=== PATIENT | female | born 1950 | race Two or more races ===

== ENCOUNTER 2024-05-13 12:00 | Emergency (ER) | payer MEDICARE, MEDICAID, SELFPAY ==
[2024-05-13 12:06] VITALS: BP 140/82; PULSE 89; RESP 19; TEMP 36.9; O2SAT 98; BMI 37.1
--- NOTE | 2024-05-13 12:36 | XR_ITS ---
Examination: CT abdomen and pelvis without contrast. Coronal 3-D reconstructions. Sagittal 2-D reconstructions. Date and time of exam:May 13, 2024 1245 hours INDICATIONS: Onset right-sided flank pain beginning 4 days ago COMPARISON: 03/08/2024 CTDI: vol (mGy): 15.8 DLP: (mGycm): 886 Technique: Axial images of the abdomen have been obtained, 3 mm slice thickness Intravenous contrast material has not been administered. Low dose protocols were performed. One or more of the following dose reduction techniques were used; automated exposure control, adjustment of the mA and/or KV according to patient size, use of iterative reconstruction technique. Findings: No focal liver or splenic lesion Small retrocardiac gastric hernia Absent gallbladder No pancreatic or adrenal mass Bilateral subcentimeter renal calculi, the largest lower pole left kidney 6 mm No hydronephrosis or ureteral calculi Aorta normal size No bowel obstruction The retrocecal appendix axial image 151, does demonstrate very mild periappendiceal inflammatory change, axial image 147, the appearance should be clinically correlated No bowel obstruction No bladder calculi IMPRESSION: Bilateral nonobstructing renal calculi, no hydronephrosis or ureteral calculi The appendix is fluid-filled with minimal periappendiceal inflammatory change, the appearance should be clinically correlated
--- NOTE | 2024-05-13 12:42 | PD.EDRME ---
Rapid Medical Screening Exam RME Arrival date/time: 05/13/24 12:00 74-year-old female presents to the emergency department with complaints of right flank pain. History of kidney stones recent stent removal 1 month ago. I have greeted and performed a focused initial assessment of this patient. Initial appropriate labs ordered at this time. A comprehensive ED assessment and evaluation of the patient and analysis of all test and completion of medical decision making process will be conducted by additional ED provider. Chief Complaint: Back Pain/Injury Time Seen by Provider: 05/13/24 12:23 Vital signs: Vital Signs Temperature 98.5 F 05/13/24 12:06 Pulse Rate 89 05/13/24 12:06 Respiratory Rate 19 05/13/24 12:06 Blood Pressure 140/82 H 05/13/24 12:06 Pulse Oximetry (%) 98 05/13/24 12:06 Oxygen Delivery Method Room Air 05/13/24 12:06
[2024-05-13 13:28] LABS: Basophils # (Auto) 0.1 Thou/mm3 (0.0-0.2); Basophils % (Auto) 1 % (0-2.5); Eosinophils # (Auto) 0.2 Thou/mm3 (0.0-0.5); Eosinophils % (Auto) 4 % (0-10); Hematocrit 34.3 % (36.0-46.0); Hemoglobin 10.6 g/dL (12.0-16.0); Immature Granulocytes % (Auto) 0 % (0-0); Immature Granulocytes Auto 0.02 Thou/mm3 (0.00-0.00); Lymphocytes # (Auto) 2.2 Thou/mm3 (1.0-4.8); Lymphocytes % (Auto) 36 % (10-50); Mean Corpuscular HGB Conc 30.9 g/dl (31.0-37.0); Mean Corpuscular Hemoglobin 24.9 pg (25.0-35.0); Mean Corpuscular Volume 81 fL (80-100); Monocytes # (Auto) 0.4 Thou/mm3 (0.0-0.8); Monocytes % (Auto) 7 % (0-12); Neutrophils # (Auto) 3.1 Thou/mm3 (1.8-7.7); Neutrophils % (Auto) 52 % (37-80); Nucleated Red Blood Cell % 0 /100 WBC (0); Platelet Count 421 Thou/mm3 (140-440); RDW Standard Deviation 49.7 fL (36.4-46.3); Red Blood Count 4.25 Miln/mm3 (4.00-5.20)
[2024-05-13 14:07] LABS: Alanine Aminotransferase 10 U/L (10-49); Albumin/Globulin Ratio 1.3 (1.2-2.2); Alkaline Phosphatase 114 U/L (46-116); Anion Gap 6 (7-16); Aspartate Amino Transferase 14 U/L (0-34); BUN/Creatinine Ratio 27 Ratio (12-20); Bilirubin,Total 0.4 mg/dL (0.3-1.2); Blood Urea Nitrogen 16 mg/dL (9-23); Calcium 10.4 mg/dL (8.3-10.6); Calcium (Corrected) 10.4 mg/dL (8.5-10.1); Carbon Dioxide 27.7 mMol/L (20.0-31.0); Chloride 107 mMol/L (98-107); Creatinine (Component) 0.6 mg/dL (0.6-1.3); Estimated Creatinine Clearance 103.4 mL/min (>60); Glucose 165 mg/dL (74-106); Lipase 34 U/L (12-53); Osmolality,Calculated 286 (275-295); Potassium 3.4 mMol/L (3.4-5.1); Sodium 141 mMol/L (136-145); eGFR > 60 See Note
--- NOTE | 2024-05-13 15:30 | EDNOTE_ITS ---
ED Back Injury Pain RME/HPI General Chief Complaint: Back Pain/Injury Stated Complaint: BACK PAIN Time Seen by Provider: 05/13/24 12:23 Arrival date/time: 05/13/24 12:00 RME / HPI RME / HPI Narrative: 05/13/24 12:00 74-year-old female presents to the emergency department with complaints of right flank pain. History of kidney stones recent stent removal 1 month ago. I have greeted and performed a focused initial assessment of this patient. Initial appropriate labs ordered at this time. A comprehensive ED assessment and evaluation of the patient and analysis of all test and completion of medical decision making process will be conducted by additional ED provider. DR. ARAMIS HART ED EVALUATION 74 year old female with a history of kidney stones, s/p right ureteral stent placement and subsequent ESWL, presents to the ED with complaints of right flank and back pain today. She reports that three weeks ago, she had her right renal stent removed in Dr. Syed's office. Following the procedure, she has been experiencing persistent back pain, for which she has been taking [place] 5 mg tablets. Several days after the stent removal, she was diagnosed with a bladder and kidney infection, for which she was prescribed antibiotics. She completed the full course of antibiotics last week. In the past week, however, she has developed a new, localized pain in the right lower quadrant, which worsened this morning. The pain is described as aching in nature, with a moderate to severe intensity. She has continued taking [place] 5 mg for pain relief but ran out of medication yesterday. Denies fever, chills, nausea, vomiting, diarrhea, or changes in urinary habits. No reported modifying factors. Related Data Home Medications ?Medication ?Instructions ?Recorded ?Confirmed fluticasone propionate 50 1 spray intranasal BID PRN 08/18/18 04/03/24 mcg/actuation nasal Congestion spray,suspension albuterol sulfate 90 mcg/actuation 2 puff inhalation QDAY PRN sob 03/22/19 04/03/24 aerosol inhaler (Ventolin HFA) omeprazole 20 mg capsule,delayed 20 mg PO QDAY 03/22/19 04/03/24 release atomoxetine 40 mg capsule 40 mg PO QAM 11/23/23 04/03/24 atorvastatin 40 mg tablet 40 mg PO QPM 11/23/23 04/03/24 meclizine 25 mg tablet 25 mg PO BID PRN Dizziness 11/23/23 04/03/24 montelukast 10 mg tablet 10 mg PO QDAY 11/23/23 04/03/24 ondansetron HCl 8 mg tablet 8 mg PO BID PRN Nausea And Vomiting 01/18/24 04/03/24 nitroglycerin 0.4 mg sublingual 0.4 mg buccal [id number] PRN Chest 02/08/24 04/03/24 tablet Pain ciprofloxacin HCl 500 mg tablet 500 mg PO BID 04/03/24 04/03/24 (Cipro) ibuprofen 800 mg tablet 800 mg PO Q8H PRN Pain 04/03/24 04/03/24 ondansetron 4 mg disintegrating 8 mg PO BID PRN Nausea 04/03/24 04/03/24 tablet rivaroxaban 20 mg tablet (Xarelto) 20 mg PO QDAY 04/03/24 04/03/24 Previous Rx's ?Medication ?Instructions ?Recorded hydrocodone 5 mg-acetaminophen 325 1 tab PO BID PRN pain #6 tabs 03/26/24 mg tablet ciprofloxacin HCl 500 mg tablet 500 mg PO BID #14 tabs 04/05/24 hydrocodone 5 mg-acetaminophen 325 1 tab PO Q6H PRN pain #30 tabs 04/05/24 mg tablet amoxicillin 875 mg-potassium 1 tab PO Q12H 5 days #10 tabs 05/13/24 clavulanate 125 mg tablet hydrocodone 5 mg-acetaminophen 325 1 tab PO Q8H PRN pain #7 tabs 05/13/24 mg tablet Allergies Allergy/AdvReac Type Severity Reaction Status Date / Time morphine Allergy Severe Itching Verified 03/08/24 12:23 codeine AdvReac Severe UPSET Verified 03/08/24 12:23 STOMACH Review of Systems Review of Systems Narrative Review of Systems: Gen: No fever, no chills, no weight loss EYES: No discharge, no visual changes, no pain HEENT: No ear pain, no congestion, no sore throat PULM: no shortness of breath, no cough, no congestion CV: No chest pain, no dyspnea on exertion, no palpitations, no chest tightness GI: No nausea, no vomiting, no diarrhea, + pain, no constipation : No frequency, no urgency,? no dysuria Musc/skel: No joint pain, +back pain Skin: No rash, no ecchymosis, no lesions Neuro: No weakness, no headache Past Medical History Past Medical History NEUROLOGIC: Positive Neurological Disorders, Cerebrovascular Accident, Seizures and Migraine CARDIAC: Positive Cardiac Disorders, Atrial Fibrillation, Angina, Congestive Heart Failure, Deep Vein Thrombosis, Hypertension and Hypotension RESPIRATORY: Positive Bronchitis, Pneumonia, Tuberculosis and Pulmonary Embolism GASTROINTESTINAL: Positive Gastrointestinal Disorders, Gastroesophageal Reflux Disease and Obesity GENITOURINARY: Positive Genitourinary Disorders, Renal Disease and Kidney Stones REPRODUCTIVE: Positive Previous Pregnancies MUSCULOSKELETAL: Positive Musculoskeletal Disorders, Arthritis and Rheumatoid Arthritis ENT: Positive Ear Infection ENDOCRINE: Positive Endocrine Disorders, Diabetes Mellitus Type 2 and Hypoglycemia HEMATOLOGIC: Positive Blood Disorders and Anemia PSYCHO/SOCIAL: Positive Depression and Anxiety OTHER HISTORY: Positive Hospitalization (UTI, fall, CVA), Anesthesia Reactions (pt states goes crazy ), Chicken Pox, Measles and Mumps Family History FAMILY HISTORY: Positive Family Cardiac Disorders, Family Cancer and Family Surgery Surgical History SURGICAL: Positive Cardiac Surgery, Angiogram, Tonsillectomy, Gastric Bypass Johana juliet, Hysterectomy and Tubal Ligation Social History SMOKING STATUS: Never smoker SUBSTANCE USE: does not use ED Exam Narrative Physical exam: GENERAL APPEARANCE: AxOx4, no obvious distress, nontoxic appearing HEENT: NC, AT. MMM. EOMI, clear conjunctiva, oropharynx clear. NECK: Supple without lymphadenopathy. No stiffness or restricted ROM. HEART: Normal rate and regular rhythm, normal S1/S1, no m/r/g LUNGS: CTAB, moving air well. No crackles or wheezes are heard. ABDOMEN: Right flank tenderness, right lower and left lower quadrant tenderness, mild McBurney point tenderness. Soft, nondistended with good bowel sounds heard. BACK: No midline C/T/L spine pain or deformity, no obvious deformity. EXTREMITIES: Without cyanosis, clubbing or edema. MUSCULOSKELETAL: FROM of all major joints, no chest tenderness NEUROLOGICAL: Grossly nonfocal. Alert and oriented, moving all 4 extremities. CN not formally tested but appear grossly intact. Skin: Warm and dry without any rash. Course Quality Measures none Orders Category Date Time Status NPO STAT Care 05/13/24 12:[address] abdomen pelvis wo con Stat Exams 05/13/24 12:36 Completed CBC Stat Lab 05/13/24 13:10 Completed Comprehensive Metabolic Panel Stat Lab 05/13/24 13:10 Completed Lipase Stat Lab 05/13/24 13:10 Completed Prothrombin Time with INR Stat Lab 05/13/24 13:10 Completed Urinalysis Stat Lab 05/13/24 16:23 Completed HYDROcodone*/APAP 5/325 [[place] 5/325] Med 05/13/24 15:31 Discontinued 1 tab PO X1 ONE Ketorolac Inj [Toradol Inj] Med 05/13/24 16:32 Discontinued 30 mg IM X1 ONE cefTRIAXone [Rocephin] 1,000 mg Med 05/13/24 17:28 Discontinued Lidocaine 1% 20 ml [Xylocaine 1% 20 ML] 2.1 ml IM X1 Reevaluation(s) Reevaluation #1: Patient remains clinically stable throughout the emergency department visit. We reviewed all the results, analysis, and treatment plans. Patient is amenable to discharge. Strict return precautions were outlined. Patient was discharged in stable condition. Time: 17:26 Vital Signs Vital signs: Vital Signs Temperature 98.5 F 05/13/24 12:06 Pulse Rate 89 05/13/24 12:06 Respiratory Rate 19 05/13/24 12:06 Blood Pressure 140/82 H 05/13/24 12:06 Pulse Oximetry (%) 98 05/13/24 12:06 Oxygen Delivery Method Room Air 05/13/24 12:06 Pulse ox is 98% on room air which is adequate. Back Pain / Injury MDM Narrative MDM Narrative:: Ms. Hernandez presents to the emergency department with right sided abdominal pain including right lower quadrant tenderness for the last 1 to 2 weeks. She has had right flank tenderness since removal of his stent with Dr. Syed 2 weeks ago of which she was taking [place] for the pain. For the last week pain is now also involved with the anterior right lower quadrant and the right mid abdomen. Additionally she had run out of her [place] yesterday therefore now comes to the emergency department. On exam she does have reproducible pain in the right lower quadrant, however she admits that the pain actually is more in the right flank when you push on her right lower quadrant. She also has McBurney's point tenderness. She endorses a borderline Rovsing sign where upon palpation of the left lower quadrant her right flank is exacerbated. Overall I do feel that this is consistent with her expected pain after removal of the stent consistent with ureteral colic. However CT scan that was ordered via the RME process shows a early fluid-filled appendix that could be consistent with early appendicitis. Given her right lower quadrant tenderness, surgery was consulted who also examined at bedside and does not feel this is consistent with acute appendicitis. As I also do feel this is the case, therefore, we will focus on following up with Dr. Reaves for ureteral colic. I have refilled her hydrocodone for a few more days until she can see Dr. Syed. I, Kerrie Anne, am scribing for and in the presence of Dr. Camarena. Patient data External records reviewed:: [facility] previous records (I reviewed urologist Dr. Syed operative report on 04/05/2024) Clinical information provided by:: patient Social determinants that could affect healthcare access:: none Patient has the following chronic illnesses:: kidney stones, s/p right ureteral stent placement and subsequent ESWL How is presenting disease/condition affected by chronic disease/condition?: exacerbated by Evaluation data The following diagnostics were reviewed and interpreted by me:: lab results and radiology exam(s) Lab and/or radiology exams considered but not ordered:: None Interpretation Summary: Ordering Physician: Pamela Davenport Date of Service: 05/13/24 Procedure(s): CT abdomen pelvis wo [facility] Accession Number(s): [id number] cc: Sen Valdez MD; Alfred Bailey MD; Pamela Davenport~ Examination: CT abdomen and pelvis without contrast. Coronal 3-D reconstructions. Sagittal 2-D reconstructions. Date and time of exam:May 13, 2024 1245 hours INDICATIONS: Onset right-sided flank pain beginning 4 days ago COMPARISON: 03/08/2024 CTDI: vol (mGy): 15.8 DLP: (mGycm): 886 Technique: Axial images of the abdomen have been obtained, 3 mm slice thickness Intravenous contrast material has not been administered. Low dose protocols were performed. One or more of the following dose reduction techniques were used; automated exposure control, adjustment of the mA and/or KV according to patient size, use of iterative reconstruction technique. Findings: No focal liver or splenic lesion Small retrocardiac gastric hernia Absent gallbladder No pancreatic or adrenal mass Bilateral subcentimeter renal calculi, the largest lower pole left kidney 6 mm No hydronephrosis or ureteral calculi Aorta normal size No bowel obstruction The retrocecal appendix axial image 151, does demonstrate very mild periappendiceal inflammatory change, axial image 147, the appearance should be clinically correlated No bowel obstruction No bladder calculi IMPRESSION: Bilateral nonobstructing renal calculi, no hydronephrosis or ureteral calculi The appendix is fluid-filled with minimal periappendiceal inflammatory change, the appearance should be clinically correlated Dictated By:Alfred Bailey MD Signed By:<Electronically signed by Alfred Bailey MD in OV>05/13/24 1354 Medications / Prescriptions Medications or Prescriptions considered but not ordered:: None Medication administrations:: Medication Administration History Discontinued Medications Hydrocodone Bitart/Acetaminophen (Hydrocodone/Apap 5/325 Tablet) 1 tab PO X1 ONE Stop: 05/13/24 15:32 Last Admin: 05/13/24 15:46 Dose: 1 tab Documented By: Ceftriaxone Sodium 1,000 mg/ (Lidocaine HCl 2.1 ml) 0 mg IM X1 ONE Stop: 05/13/24 17:29 Last Admin: 05/13/24 17:56 Dose: 1,000 mg Documented By: LF Comments: Ketorolac Tromethamine (Ketorolac Inj 60 Mg/2 Ml Vial) 30 mg IM X1 ONE Stop: 05/13/24 16:33 Last Admin: 05/13/24 17:53 Dose: 30 mg Documented By: LF See above Consultations Consultation(s) initiated? (list below): Yes Consultation #1 (Physician, Specialty, Details): I spoke with surgeon Dr. Kumar. Discussed patients PMHx, HPI, ED course, exam findings, labs, and radiology results. States she will come evaluate the patient in the ED. Time: 15:30 Consultation #2 (Physician, Specialty, Details): Dr. Kumar evaluated patient in the ED and does not feel there is a surgical problem at this time. States during her examination majority of pain is most to the right back. Diagnosis Most likely diagnosis given after review of the tests above:: Abdominal pain UTI Admission Indicated Admission indicated?: not indicated Admission Request Was there a request for admission?: No Disposition Plan Disposition Plan: Discharge Discharge Attestation Discharge Attestation: The patient and all family members were given an opportunity to ask questions and understood the discharge instructions. Discharge instructions specifically effects, indications for sooner follow up or return to the emergency department, and the expected course of current diagnosis. Patient condition: Stable Discharge Plan Plan Patient Disposition: HOME (Self Care) Prescriptions/Referrals Prescriptions/Med Rec: New hydrocodone-acetaminophen 5-325 mg tablet 1 tab PO Q8H MDD 3 tabs/day PRN (Reason: pain) Qty: 7 0RF amoxicillin-pot clavulanate 875-125 mg tablet 1 tab PO Q12H 5 Days Qty: 10 0RF No Action fluticasone propionate 50 mcg/actuation spray,suspension 1 spray Intranasal BID PRN (Reason: Congestion) Patient Comments: 1 SPRAY IN EACH NOSTRIL TWICE A DAY NEEDED FOR CONGESTION NASALLY 07 DAYS omeprazole 20 mg Capsule,Delayed Release(Dr/Ec) 20 mg PO QDAY albuterol sulfate [Ventolin HFA] 90 mcg/actuation Hfa Aerosol Inhaler 2 puff inhalation QDAY PRN (Reason: sob) nitroglycerin 0.4 mg Tablet, Sublingual 0.4 mg BUCCAL [id number] PRN (Reason: Chest Pain) hydrocodone-acetaminophen 5-325 mg tablet 1 tab PO BID MDD 10mg PRN (Reason: pain) Qty: 6 0RF ibuprofen 800 mg Tablet 800 mg PO Q8H PRN (Reason: Pain) ciprofloxacin HCl [Cipro] 500 mg Tablet 500 mg PO BID Xarelto 20 mg Tablet 20 mg PO QDAY Rx Instructions: must administer with evening meal ondansetron 4 mg tablet,disintegrating 8 mg PO BID PRN (Reason: Nausea) hydrocodone-acetaminophen 5-325 mg tablet 1 tab PO Q6H MDD 6 PRN (Reason: pain) Qty: 30 0RF ciprofloxacin HCl 500 mg tablet 500 mg PO BID Qty: 14 0RF atorvastatin 40 mg Tablet 40 mg PO QPM meclizine 25 mg Tablet 25 mg PO BID PRN (Reason: Dizziness) montelukast 10 mg Tablet 10 mg PO QDAY atomoxetine 40 mg Capsule 40 mg PO QAM ondansetron HCl 8 mg tablet 8 mg PO BID PRN (Reason: Nausea And Vomiting) Patient Comments: TAKE 1 TABLET BY MOUTH TWICE A DAY NEEDED Referrals: Sen Valdez MD [Primary Care Provider] - In 1 week Problem List Clinical Impression: Abdominal pain, UTI (urinary tract infection) Patient/Caregiver Discharge Instructions Education Materials: ED Abdominal Pain Unkn Cause Fem, ED CYSTITIS Female Adult Additional Instructions: Follow-up with your primary care doctor in 2 to 3 days for recheck. Feel free return to the emergency department sooner symptoms worsen or if you notice any new, concerning issues. You have been given a shot of antibiotics here in the emergency department, you can fill your prescription tomorrow morning and start the prescribed antibiotics when you receive them. Print Language: Bengali Stand Alone Forms: Ros[facility] Award Info., Patient Portal Info Letter
[2024-05-13] MEDS: HYDROcodone/APAP 5/325 TABLET 1 TAB PO (15:46)
[2024-05-13 16:46] LABS: Collection Type, Urine Clean Catch
[2024-05-13 17:14] LABS: Bacteria,Urine 4+; Bilirubin,Urine Negative (Negative); Blood,Urine 1+ (Negative); Clarity,Urine Turbid (Clear/Hazy); Color,Urine Yellow (Lt Yel-Yel); Glucose, Urine Negative (Negative); Ketones,Urine Negative (Negative); Leukocyte Esterase,Urine Positive (Negative); Nitrite,Urine Positive (Negative); Protein,Urine Trace (Neg - Trace); RBC,Urine 26 /hpf (0-3); Specific Gravity,Urine 1.022 (1.001-1.035); Squamous Epithelial Cell,Urine 1 /hpf (0-5); Urobilinogen,Urine Negative mg/dL (0.0-1.0); WBC,Urine 56 /hpf (0-5)
[2024-05-13] MEDS: KETOROLAC INJ 60 MG/2 ML VIAL 30 MG IM (17:53)
[2024-05-13] MEDS: cefTRIAXone 1,000 MG, LIDOCAINE 1% 20 ML 2.1 ML IM (17:56)
== END 2024-05-13 18:24 | disposition home or self-care (01) ==
PROVIDERS: Nurse Practitioner Primary Care; Emergency Provider Emergency Medicine; PCP Family Medicine
DX: N39.0 Urinary tract infection, site not specified (principal); N20.0 Calculus of kidney
CPT/HCPCS: 36415; 74176; 80053; 81001; 83690; 85025; 85610; 87086; 96372; 99284; J0696; J1885; J3490; A9270

== ENCOUNTER 2024-07-11 14:22 | Outpatient (RCR) | payer MEDICARE, MEDICAID, SELFPAY ==
--- NOTE | 2024-07-11 14:56 | PT.OIERPT ---
PT OP Initial Eval Patient Information Outpatient Physical Therapy Treatment Date: 07/11/24 Visit Reasons: Eval for motorized wheelchair Medical Diagnosis: Back Pain Treatment Dx #1: BLE Weakness Treatment Dx #2: Falls Start of Care: 07/11/24 Date of Onset: 6 months ago Smoking Status Smoking Status: Never smoker Initial Assessment Subjective: Pt is a 74 y/o female reports of back pain, BLE weakness, vertigo, a-fib, heart failure, and imbalance. Due to limitation Pt has difficulty with ADLs, community outings, and and recreational activities. Objective: Please see wheel chair evaluation for more details BLE MMTs: grossly 3+/5 TU sec Assessment: Pt demonstrate BLE weakness and back pain leading to difficulty with ADLs. Furthermore, Pt has been falling more frequently at home. Pt will benefit from a power wheelchair to increase independence and community outings. Pt was evaluated and d/c from care; thank you for your referrals. Short Term and Passenger Rate Clerk Goals 1) Eval and D/C 2) Follow up with MD Treatment Plan Frequency and Duration: 1x Certification Dates: 07/11/24 to 10/09/24 Procedure Charges OP PT Eval Mod Complex 30 minutes: Yes
== END 2024-07-12 23:59 | disposition home or self-care (01) ==
LOC: CPTX 14:22
PROVIDERS: PCP Family Medicine; Referring Provider Family Medicine; Visit Provider Family Medicine
DX: M54.9 Dorsalgia, unspecified (principal); R53.1 Weakness; R26.89 Other abnormalities of gait and mobility; R29.6 Repeated falls
CPT/HCPCS: 97162

== ENCOUNTER 2024-08-22 14:58 | Emergency (ER) | payer MEDICARE, MEDICAID, SELFPAY ==
--- NOTE | 2024-08-22 16:13 | EKG_ITS ---
[facility] Test Date: 2024-08-22 Pat Name: BARBIE SWEENEY Department: Room: - Gender: Female Full Stack Java Developer: : 1950 Requested By: Vick Gordon Order Number: [id number] Reading MD: Vick Gordon Measurements Intervals [place] Rate: 84 P: 51 MS: 161 QRS: -4 QRSD: 85 T: 31 QT: 359 QTc: 425 Interpretive Statements SINUS RHYTHM Compared to ECG 03/25/2024 16:19:47 Myocardial infarct finding no longer present /store/S0/[id number]/ecg/[id number].pdf
--- NOTE | 2024-08-22 16:13 | XR_ITS ---
EXAMINATION: CT head/brain wo con, CT cervical spine wo con ORDERING PROVIDER: Vick Martinez NP HISTORY: Right-sided headache, neck pain, dizziness. Fall one week ago. TECHNIQUE: CT scanner was used in the volumetric, helical non-contrast acquisition of the head and cervical spine with 2-D and 3-D reformats created on a separate workstation and submitted for interpretation. Institutional dose reducing protocols were utilized. RADIATION DOSE: DLP 997 mGy-cm COMPARISON: 10/12/2023, CT head. A 03/01/2024, CT cervical spine. FINDINGS: No acute intracranial hemorrhage, mass effect, or midline shift. Mild global parenchymal volume loss. Scattered periventricular and subcortical white matter hypodensities, which can be seen with chronic small vessel ischemic changes. Preserved ventricles and basal cisterns. Orbits unremarkable. Paranasal sinuses clear. Mastoid air cells clear. Diffuse bony demineralization. Hyperostosis frontalis. Moderate perivascular calcifications. No skull fracture identified. No cervical spine fracture or dislocation. Straightening of the normal cervical lordotic curvature which may be on the basis of muscle spasm or patient positioning. Mild multilevel uncovertebral hypertrophy. Moderate bridging syndesmophytes upper thoracic spine partially evaluated. Mild degenerative disc disease produces pronounced at C7-T1 and T1-T2. Small osseous cyst right posterior elements T1, increased in prominence from prior. Partially evaluated large lobulated soft tissue mass in the upper mediastinum with associated coarse calcifications and nodules measuring up to 1.4 cm favored to represent a multinodular thyroid goiter. Moderate calcifications carotid bulbs. Retropharyngeal carotid arteries. IMPRESSION: 1. No acute intracranial hemorrhage, mass effect, or midline shift. 2. No cervical spine fracture or dislocation. 3. Partially evaluated large lobulated soft tissue mass with associated coarse calcifications and nodularity in the upper mediastinum favored to represent a multinodular thyroid goiter. Recommend correlation with history and physical exam. Consider routine outpatient thyroid ultrasound.
--- NOTE | 2024-08-22 16:14 | EDRME_ITS ---
Rapid Medical Screening Exam [facility] Arrival date/time: 08/22/24 14:58 CC: Dizziness HPI ongoing for the past week which includes 2 falls 1 3 days ago and 1 2 days ago. Patient states dizziness involves her spinning not the room spinning no prior history of similar events. Denies chest pain shortness of breath difficulty breathing. Chief Complaint: Dizziness
[2024-08-22 16:24] VITALS: BP 112/67; PULSE 83; RESP 18; TEMP 36.6; O2SAT 97
[2024-08-22] MEDS: MECLIZINE HCL 25 MG TABLET 50 MG PO (16:31)
[2024-08-22 16:45] LABS: Basophils # (Auto) 0.1 Thou/mm3 (0.0-0.2); Basophils % (Auto) 1 % (0-2.5); Eosinophils # (Auto) 0.4 Thou/mm3 (0.0-0.5); Eosinophils % (Auto) 5 % (0-10); Hematocrit 40.4 % (36.0-46.0); Hemoglobin 13.1 g/dL (12.0-16.0); Immature Granulocytes % (Auto) 0 % (0-0); Immature Granulocytes Auto 0.01 Thou/mm3 (0.00-0.00); Lymphocytes # (Auto) 2.2 Thou/mm3 (1.0-4.8); Lymphocytes % (Auto) 31 % (10-50); Mean Corpuscular HGB Conc 32.4 g/dl (31.0-37.0); Mean Corpuscular Hemoglobin 28.6 pg (25.0-35.0); Mean Corpuscular Volume 88 fL (80-100); Monocytes # (Auto) 0.4 Thou/mm3 (0.0-0.8); Monocytes % (Auto) 6 % (0-12); Neutrophils # (Auto) 3.9 Thou/mm3 (1.8-7.7); Neutrophils % (Auto) 56 % (37-80); Nucleated Red Blood Cell % 0 /100 WBC (0); Platelet Count 362 Thou/mm3 (140-440); RDW Standard Deviation 56.9 fL (36.4-46.3); Red Blood Count 4.58 Miln/mm3 (4.00-5.20); White Blood Count 6.9 Thou/mm3 (3.6-11.0)
[2024-08-22 17:00] LABS: Prothrombin Time 10.8 Seconds (9.0-12.2)
[2024-08-22 17:04] LABS: B-Type Natriuretic Peptide < 20 pg/mL (0-100)
[2024-08-22 17:06] LABS: Alanine Aminotransferase 12 U/L (10-49); Albumin, Serum 3.9 gm/dL (3.4-4.8); Albumin/Globulin Ratio 1.5 (1.2-2.2); Alkaline Phosphatase 115 U/L (46-116); Anion Gap 7 (7-16); Aspartate Amino Transferase 14 U/L (0-34); BUN/Creatinine Ratio 18 Ratio (12-20); Bilirubin,Total 0.3 mg/dL (0.3-1.2); Blood Urea Nitrogen 14 mg/dL (9-23); Calcium 9.5 mg/dL (8.3-10.6); Calcium (Corrected) 9.6 mg/dL (8.5-10.1); Carbon Dioxide 26.6 mMol/L (20.0-31.0); Chloride 105 mMol/L (98-107); Creatinine (Component) 0.8 mg/dL (0.6-1.3); Globulin 2.6 gm/dL (2.3-3.5); Glucose 195 mg/dL (74-106); LDH (Lactate Dehydrogenase) 176 U/L (120-246); Osmolality,Calculated 283 (275-295); Potassium 3.8 mMol/L (3.4-5.1); Sodium 139 mMol/L (136-145); Total Protein 6.5 gm/dL (5.7-8.2); Troponin I < 0.020 ng/mL (0.0-0.045); eGFR > 60 See Note
[2024-08-22 17:52] VITALS: BP 149/83; PULSE 83; RESP 18; TEMP 37.3; O2SAT 100
[2024-08-22 18:42] LABS: Collection Type, Urine Clean Catch
[2024-08-22 19:17] LABS: Bacteria,Urine 1+; Bilirubin,Urine Negative (Negative); Blood,Urine Trace (Negative); Clarity,Urine Turbid (Clear/Hazy); Color,Urine Yellow (Lt Yel-Yel); Glucose, Urine Negative (Negative); Hyaline Casts,Urine < 1 /hpf (0-1); Ketones,Urine Negative (Negative); Leukocyte Esterase,Urine Positive (Negative); Nitrite,Urine Positive (Negative); Protein,Urine 1+ (Neg - Trace); RBC,Urine 22 /hpf (0-3); Specific Gravity,Urine 1.021 (1.001-1.035); Squamous Epithelial Cell,Urine < 1 /hpf (0-5); WBC,Urine 169 /hpf (0-5)
[2024-08-22 19:26] LABS: Amphetamine/Methamp Scrn,U Negative (Negative); Barbiturate Screen,Urine Negative (Negative); Benzodiazepines Screen,Urine Negative (Negative); Benzoylecgonine Screen, Ur Negative (Negative); Fentanyl Screen,Urine Negative (Negative); Opiate Screen,Urine Negative (Negative); THC Screen,Urine Negative (Negative)
[2024-08-22 20:10] VITALS: BP 142/78; PULSE 85; RESP 18; TEMP 37.2; O2SAT 97
--- NOTE | 2024-08-22 20:45 | PD.EDDIZZY ---
ED Dizzyness RME/HPI General Chief Complaint: Dizziness Stated Complaint: DIZZY, HEADACHE X1 WEEK Time Seen by Provider: 08/22/24 20:31 Arrival date/time: 08/22/24 14:58 RME / HPI RME / HPI Narrative: 74-year-old female patient with significant history of A-fib came in for evaluation regarding dizziness ,ongoing for the past week which includes 2 falls 1 3 days ago and 1 2 days ago. Patient states dizziness involves her spinning not the room spinning no prior history of similar events. Denies chest pain shortness of breath difficulty breathing. Denies any other complaints no medication was taken prior to arrival. Related Data Home Medications ?Medication ?Instructions ?Recorded ?Confirmed fluticasone propionate 50 1 spray intranasal BID PRN 08/18/18 04/03/24 mcg/actuation nasal Congestion spray,suspension albuterol sulfate 90 mcg/actuation 2 puff inhalation QDAY PRN sob 03/22/19 04/03/24 aerosol inhaler (Ventolin HFA) omeprazole 20 mg capsule,delayed 20 mg PO QDAY 03/22/19 04/03/24 release atomoxetine 40 mg capsule 40 mg PO QAM 11/23/23 04/03/24 atorvastatin 40 mg tablet 40 mg PO QPM 11/23/23 04/03/24 meclizine 25 mg tablet 25 mg PO BID PRN Dizziness 11/23/23 04/03/24 montelukast 10 mg tablet 10 mg PO QDAY 11/23/23 04/03/24 ondansetron HCl 8 mg tablet 8 mg PO BID PRN Nausea And Vomiting 01/18/24 04/03/24 nitroglycerin 0.4 mg sublingual 0.4 mg buccal [id number] PRN Chest 02/08/24 04/03/24 tablet Pain ciprofloxacin HCl 500 mg tablet 500 mg PO BID 04/03/24 04/03/24 (Cipro) ibuprofen 800 mg tablet 800 mg PO Q8H PRN Pain 04/03/24 04/03/24 ondansetron 4 mg disintegrating 8 mg PO BID PRN Nausea 04/03/24 04/03/24 tablet rivaroxaban 20 mg tablet (Xarelto) 20 mg PO QDAY 04/03/24 04/03/24 Previous Rx's ?Medication ?Instructions ?Recorded hydrocodone 5 mg-acetaminophen 325 1 tab PO BID PRN pain #6 tabs 03/26/24 mg tablet ciprofloxacin HCl 500 mg tablet 500 mg PO BID #14 tabs 04/05/24 hydrocodone 5 mg-acetaminophen 325 1 tab PO Q6H PRN pain #30 tabs 04/05/24 mg tablet hydrocodone 5 mg-acetaminophen 325 1 tab PO Q8H PRN pain #7 tabs 05/13/24 mg tablet cefuroxime axetil 500 mg tablet 500 mg PO BID #14 tabs 08/22/24 meclizine 50 mg tablet 50 mg PO BID PRN dizziness #20 tabs 08/22/24 ondansetron HCl 4 mg tablet 4 mg PO Q8H PRN nausea and 08/22/24 vomiting 5 days #20 tabs Allergies Allergy/AdvReac Type Severity Reaction Status Date / Time morphine Allergy Severe Itching Verified 08/22/24 15:01 codeine AdvReac Severe UPSET Verified 08/22/24 15:01 STOMACH Review of Systems Review of Systems Narrative Review of Systems: Review of system reviewed and within normal limits except mentioned in HPI ED Exam Narrative Physical exam: VITAL SIGNS: Reviewed. GENERAL APPEARANCE: Alert and interactive, follows commands, no acute distress, HEAD AND FACE: Non-traumatic. ENT: PERRL, pink conjunctivitis, eyelid no trauma, Mucous membrane moist. NECK: Supple, nontender, no nuchal rigidity. CHEST: No tenderness, no crepitus, no paradoxical movement, no retractions. LUNGS: Clear, well ventilated, symmetric, no rales, no wheezing, no ronchi, no stridor, good breath sounds bilaterally. HEART: Regular rate, regular rhythm, no murmur, no gallops. ABDOMEN: Soft, positive bowel sounds, nondistended, no guarding, nontender, no rebound, no masses, RECTAL: Deferred. GENITAL: Deferred. NEUROLOGICAL: Gross motor function intact sensory function intact, Appropriate for age. MUSCULOSKELETAL: low back nontender, full range of motion. EXTREMITIES: Nontender, full range of motion. SKIN: Color pink, dry, no rash, no lacerations, no abrasions, no contusions. LYMPHATICS: Deferred. Course Quality Measures none Orders Category Date Time Status EKG (ED ONLY) *Do not use* NOW Care 08/22/24 16:[address] cervical spine wo con Stat Exams 08/22/24 16:[address] head/brain wo con Stat Exams 08/22/24 16:13 Completed EKG (ED Only) Stat Exams 08/22/24 16:13 Draft B-Type Natriuretic Peptide Stat Lab 08/22/24 16:34 Completed CBC Stat Lab 08/22/24 16:34 Completed Comprehensive Metabolic Panel Stat Lab 08/22/24 16:34 Completed Drug Screen,Urine Stat Lab 08/22/24 17:27 Completed LDH (Lactate Dehydrogenase) Stat Lab 08/22/24 16:34 Completed Magnesium Stat Lab 08/22/24 16:34 Completed Partial Thromboplastin Time Stat Lab 08/22/24 16:34 Completed Prothrombin Time with INR Stat Lab 08/22/24 16:34 Completed Troponin I Stat Lab 08/22/24 16:34 Completed Urinalysis Stat Lab 08/22/24 17:26 Completed 1,000 mg IM w/Lido* 1% Med 08/22/24 20:45 Ordered cefTRIAXone [Rocephin] 1,000 mg Lidocaine 1% 20 ml [Xylocaine 1% 20 ML] 2.1 ml IM X1 Meclizine HCl [Antivert] Med 08/22/24 16:13 Discontinued 50 mg PO X1 ONE Vital Signs Vital signs: Vital Signs Temperature 97.9 F 08/22/24 16:24 Pulse Rate 83 08/22/24 16:24 Respiratory Rate 18 08/22/24 16:24 Blood Pressure 112/67 08/22/24 16:24 Pulse Oximetry (%) 97 08/22/24 16:24 Oxygen Delivery Method Room Air 08/22/24 16:24 Dizziness MDM Narrative MDM Narrative:: 74-year-old female patient with significant history of A-fib came in for evaluation regarding dizziness ,ongoing for the past week which includes 2 falls 1 3 days ago and 1 2 days ago. Patient states dizziness involves her spinning not the room spinning no prior history of similar events. Denies chest pain shortness of breath difficulty breathing. Denies any other complaints no medication was taken prior to arrival. Laboratory workup all came back unremarkable except for positive UTI, CT scan of the head came back unremarkable CT scan of the cervical spine came back 1. No acute intracranial hemorrhage, mass effect, or midline shift. 2. No cervical spine fracture or dislocation. 3. Partially evaluated large lobulated soft tissue mass with associated coarse calcifications and nodularity in the upper mediastinum favored to represent a multinodular thyroid goiter. Recommend correlation with history and physical exam. Consider routine outpatient thyroid ultrasound. Patient needs outpatient thyroid ultrasound. Patient's was advised to follow-up closely with PCP and follow-up regarding incidental finding of the thyroid gland enlargement. Patient agrees with the plan. Patient was given ceftriaxone IM. Patient data External records reviewed:: None Clinical information provided by:: patient Social determinants that could affect healthcare access:: none Patient has the following chronic illnesses:: Chronic A-fib How is presenting disease/condition affected by chronic disease/condition?: uneffected by Evaluation data The following diagnostics were reviewed and interpreted by me:: lab results, radiology exam(s) and EKG tracing(s) Lab and/or radiology exams considered but not ordered:: None Interpretation Summary: EKG showed sinus rhythm, ventricular rate of 84 bpm, no ST segment elevation depression noted. The rest of the labs and imaging see MDM Medications / Prescriptions Medications or Prescriptions considered but not ordered:: None Medication administrations:: Medication Administration History Discontinued Medications Meclizine HCl (Meclizine Hcl 25 Mg Tablet) 50 mg PO X1 ONE Stop: 08/22/24 16:14 Last Admin: 08/22/24 16:31 Dose: 50 mg Documented By: CHRIS Meclizine and ceftriaxone IM Consultations Consultation(s) initiated? (list below): No Diagnosis Dizziness Differential Diagnosis: benign paroxysmal positional vertigo and other (UTI, dizziness, dehydration) Most likely diagnosis given after review of the tests above:: Dizziness, UTI Admission Indicated Admission indicated?: not indicated Explain why admission is indicated or not indicated:: Stable Admission Request Was there a request for admission?: No Disposition Plan Disposition Plan: Discharge Discharge Attestation Discharge Attestation: The patient was given an opportunity to ask questions and understood the discharge instructions. Discharge instructions specifically effects, indications for sooner follow up or return to the emergency department, and the expected course of current diagnosis. Patient condition: Stable Discharge Plan Plan Patient Disposition: HOME (Self Care) Disposition Comment: stable Prescriptions/Referrals Prescriptions/Med Rec: New cefuroxime axetil 500 mg tablet 500 mg PO BID Qty: 14 0RF meclizine 50 mg tablet 50 mg PO BID PRN (Reason: dizziness) Qty: 20 0RF ondansetron HCl 4 mg tablet 4 mg PO Q8H PRN (Reason: nausea and vomiting) 5 Days Qty: 20 0RF No Action fluticasone propionate 50 mcg/actuation spray,suspension 1 spray Intranasal BID PRN (Reason: Congestion) Patient Comments: 1 SPRAY IN EACH NOSTRIL TWICE A DAY NEEDED FOR CONGESTION NASALLY 07 DAYS omeprazole 20 mg Capsule,Delayed Release(Dr/Ec) 20 mg PO QDAY albuterol sulfate [Ventolin HFA] 90 mcg/actuation Hfa Aerosol Inhaler 2 puff inhalation QDAY PRN (Reason: sob) nitroglycerin 0.4 mg Tablet, Sublingual 0.4 mg BUCCAL [id number] PRN (Reason: Chest Pain) hydrocodone-acetaminophen 5-325 mg tablet 1 tab PO BID MDD 10mg PRN (Reason: pain) Qty: 6 0RF ibuprofen 800 mg Tablet 800 mg PO Q8H PRN (Reason: Pain) ciprofloxacin HCl [Cipro] 500 mg Tablet 500 mg PO BID Xarelto 20 mg Tablet 20 mg PO QDAY Rx Instructions: must administer with evening meal ondansetron 4 mg tablet,disintegrating 8 mg PO BID PRN (Reason: Nausea) hydrocodone-acetaminophen 5-325 mg tablet 1 tab PO Q6H MDD 6 PRN (Reason: pain) Qty: 30 0RF ciprofloxacin HCl 500 mg tablet 500 mg PO BID Qty: 14 0RF atorvastatin 40 mg Tablet 40 mg PO QPM meclizine 25 mg Tablet 25 mg PO BID PRN (Reason: Dizziness) montelukast 10 mg Tablet 10 mg PO QDAY atomoxetine 40 mg Capsule 40 mg PO QAM ondansetron HCl 8 mg tablet 8 mg PO BID PRN (Reason: Nausea And Vomiting) Patient Comments: TAKE 1 TABLET BY MOUTH TWICE A DAY NEEDED hydrocodone-acetaminophen 5-325 mg tablet 1 tab PO Q8H MDD 3 tabs/day PRN (Reason: pain) Qty: 7 0RF Referrals: No Primary/Family,Physician [Primary Care Provider] - In 1 week Problem List Clinical Impression: UTI (urinary tract infection), Dizziness Patient/Caregiver Discharge Instructions Discharge Activity: activity as tolerated Education Materials: Understanding Urinary Tract ... Additional Instructions: Thank you for the opportunity for serving you today. You are stable for discharged . You are advised to: Follow-up with your PCP in 1 to 2 days Return to ED for worsening of symptoms Increase oral fluids Take medication as prescribed Print Language: Japanese Stand Alone Forms: Rosario Award Info., Patient Portal Info Letter PA/LEGAL ASSISTANT Supervising Physician PA/LEGAL ASSISTANT Supervising Physician: MD Yhaaira
[2024-08-22] MEDS: cefTRIAXone 1,000 MG, LIDOCAINE 1% 20 ML 2.1 ML IM (21:10)
== END 2024-08-22 21:00 | disposition home or self-care (01) ==
PROVIDERS: Registered Nurse General Practice; Emergency Provider Emergency Medicine
DX: N39.0 Urinary tract infection, site not specified (principal); R42 Dizziness and giddiness; I48.91 Unspecified atrial fibrillation; R51.9 Headache, unspecified; M54.2 Cervicalgia
CPT/HCPCS: 36415; 70450; 72125; 80053; 80307; 81001; 83615; 83735; 83880; 84484; 85025; 85610; 85730; 93005; 96372; 99284; J0696; J3490; A9270

== ENCOUNTER 2024-11-12 18:11 | Inpatient (IN) | payer MEDICARE, MEDICAID, SELFPAY ==
[2024-11-12] VITALS (30 sets, daily range): BP systolic 119–168; BP diastolic 66–108; PULSE 68–92; RESP 14–100; TEMP 36.7–37.1; O2SAT 92–100; BMI 33.9
--- NOTE | 2024-11-12 18:20 | EKG_ITS ---
[facility] (Formerly [facility]) Test Date: 2024-11-12 Pat Name: BARBIE SWEENEY Department: Room: - Gender: Female [employer]: : 1950 Requested By: Sea Meier Order Number: [id number] Reading MD: Sea Meier Measurements Intervals [place] Rate: 75 P: 44 DC: 152 QRS: 6 QRSD: 93 T: 24 QT: 407 QTc: 457 Interpretive Statements SINUS RHYTHM LOW QRS VOLTAGE IN PRECORDIAL LEADS [QRS DEFLECTION < 1.0 mV IN CHEST LEADS] Compared to ECG 08/22/2024 16:21:39 Low QRS voltage now present /[id number]/[email or web address]/[id number].pdf
--- NOTE | 2024-11-12 18:36 | XR_ITS ---
Examination: AP chest single view TECHNIQUE: AP portable upright chest single view Date and time: November 12, 2024, 1940 hours Comparison March 25, 2024 INDICATIONS: Such as pain today. FINDINGS: Minimal prominence left ventricle Mild elevation right hemidiaphragm. Mild vascular congestion. Suspicious for early pneumonia left base, obscuring detail left hemidiaphragm Prominent osteopenia. IMPRESSION: Suspicious for early pneumonia left base
[2024-11-12] MEDS: MECLIZINE HCL 25 MG TABLET PO (18:47)
[2024-11-12 19:00] LABS: Basophils # (Auto) 0.1 Thou/mm3 (0.0-0.2); Basophils % (Auto) 1 % (0-2.5); Eosinophils # (Auto) 0.5 Thou/mm3 (0.0-0.5); Eosinophils % (Auto) 8 % (0-10); Hematocrit 37.5 % (36.0-46.0); Hemoglobin 12.8 g/dL (12.0-16.0); Immature Granulocytes % (Auto) 0 % (0-0); Immature Granulocytes Auto 0.02 Thou/mm3 (0.00-0.00); Lymphocytes # (Auto) 2.2 Thou/mm3 (1.0-4.8); Lymphocytes % (Auto) 35 % (10-50); Mean Corpuscular HGB Conc 34.1 g/dl (31.0-37.0); Mean Corpuscular Hemoglobin 30.4 pg (25.0-35.0); Mean Corpuscular Volume 89 fL (80-100); Monocytes # (Auto) 0.5 Thou/mm3 (0.0-0.8); Monocytes % (Auto) 8 % (0-12); Neutrophils % (Auto) 48 % (37-80); Nucleated Red Blood Cell % 0 /100 WBC (0); Platelet Count 396 Thou/mm3 (140-440); Red Blood Count 4.21 Miln/mm3 (4.00-5.20); White Blood Count 6.3 Thou/mm3 (3.6-11.0)
--- NOTE | 2024-11-12 19:05 | PD.EDDIZZY ---
ED Dizzyness RME/HPI General Chief Complaint: Dizziness Stated Complaint: DIZZY Time Seen by Provider: 11/12/24 18:34 Arrival date/time: 11/12/24 18:11 RME / HPI RME / HPI Narrative: Dr. Crowley?s Main ED Evaluation:?74 y/o female with Hx of CVA, HTN, COPD, Seizures, history of Diabetes Mellitus Type 2 but not taking meds, Hypoglycemia, Anemia, chronic vertigo, and chronic UTI's presents to ED c/o an episode of severe chest pain with shortness of breath and nausea x yesterday. Patient took nitroglcerin and symptoms improved. Today she states that she has had some similar chest pain with shortness of breath and nausea as well as an exacerbation of her chronic vertigo. Denies any vomiting. Patient has just completed ABX regimen for UTI and states these are chronic in nature. Patient states she has some mild dysuria but no flank pain, fevers, shakes, chills, sweats. Patient states that she takes meclizine daily for chronic vertigo. She is stating she is also feeling an exacerbation of her sensation of spinning balance issues. No other concerns or complaints expressed at this time. Related Data Home Medications ?Medication ?Instructions ?Recorded ?Confirmed fluticasone propionate 50 1 spray intranasal BID PRN 08/18/18 11/13/24 mcg/actuation nasal Congestion spray,suspension albuterol sulfate 90 mcg/actuation 2 puff inhalation QDAY PRN sob 03/22/19 11/13/24 aerosol inhaler (Ventolin HFA) omeprazole 20 mg capsule,delayed 20 mg PO QDAY 03/22/19 11/13/24 release atomoxetine 40 mg capsule 40 mg PO QAM 11/23/23 11/13/24 atorvastatin 40 mg tablet 40 mg PO QPM 11/23/23 11/13/24 meclizine 25 mg tablet 25 mg PO BID PRN Dizziness 11/23/23 11/13/24 montelukast 10 mg tablet 10 mg PO QDAY 11/23/23 11/13/24 ondansetron HCl 8 mg tablet 8 mg PO BID PRN Nausea And Vomiting 01/18/24 04/03/24 nitroglycerin 0.4 mg sublingual 0.4 mg buccal [id number] PRN Chest 02/08/24 11/13/24 tablet Pain ibuprofen 800 mg tablet 800 mg PO Q8H PRN Pain 04/03/24 11/13/24 ondansetron 4 mg disintegrating 8 mg PO BID PRN Nausea 04/03/24 11/13/24 tablet rivaroxaban 20 mg tablet (Xarelto) 20 mg PO QDAY 04/03/24 11/13/24 Previous Rx's ?Medication ?Instructions ?Recorded hydrocodone 5 mg-acetaminophen 325 1 tab PO BID PRN pain #6 tabs 03/26/24 mg tablet hydrocodone 5 mg-acetaminophen 325 1 tab PO Q6H PRN pain #30 tabs 04/05/24 mg tablet hydrocodone 5 mg-acetaminophen 325 1 tab PO Q8H PRN pain #7 tabs 05/13/24 mg tablet meclizine 50 mg tablet 50 mg PO BID PRN dizziness #20 tabs 08/22/24 Allergies Allergy/AdvReac Type Severity Reaction Status Date / Time morphine Allergy Severe Itching Verified 08/22/24 15:01 codeine AdvReac Severe UPSET Verified 08/22/24 15:01 STOMACH Review of Systems Review of Systems Systems Reviewed: All systems reviewed, normal except as documented Past Medical History Past Medical History NEUROLOGIC: Positive Neurological Disorders, Cerebrovascular Accident, Seizures and Migraine CARDIAC: Positive Cardiac Disorders, Atrial Fibrillation, Angina, Congestive Heart Failure, Deep Vein Thrombosis, Hypertension and Hypotension RESPIRATORY: Positive Chronic Obstructive Pulmonary Disease (COPD), Bronchitis, Pneumonia, Tuberculosis and Pulmonary Embolism GASTROINTESTINAL: Positive Gastrointestinal Disorders, Gastroesophageal Reflux Disease and Obesity GENITOURINARY: Positive Genitourinary Disorders, Renal Disease and Kidney Stones REPRODUCTIVE: Positive Previous Pregnancies MUSCULOSKELETAL: Positive Musculoskeletal Disorders, Arthritis and Rheumatoid Arthritis ENT: Positive Ear Infection ENDOCRINE: Positive Endocrine Disorders, Diabetes Mellitus Type 2 and Hypoglycemia HEMATOLOGIC: Positive Blood Disorders and Anemia PSYCHO/SOCIAL: Positive Depression and Anxiety OTHER HISTORY: Positive Hospitalization, Anesthesia Reactions, Chicken Pox, Measles and Mumps Family History FAMILY HISTORY: Positive Family Cardiac Disorders, Family Cancer and Family Surgery Surgical History SURGICAL: Positive Cardiac Surgery, Angiogram, Tonsillectomy, Gastric Bypass Surgery, Hysterectomy and Tubal Ligation Social History SMOKING STATUS: Current some day smoker ED Exam Narrative Physical exam: GENERAL APPEARANCE: alert and oriented x 4, well-developed, well-nourished, no acute distress VITALS: All vitals were reviewed and the pulse ox is 100% on room air, which is normal according to my interpretation. HEENT: Normocephalic, atraumatic; pupils equal, round, reactive to light; EOMI; mild leftward horizontal nystagmus which is worse on position change; mucous membranes pink, moist; oropharynx clear NECK: Supple LUNGS: CTABL; no wheezes, no rales, no rhonchi HEART: Regular rate, regular rhythm; normal S1, S2; no murmurs ABDOMEN: non distended; normal BS; soft, no tenderness, no guarding, no rebound; no masses, no organomegaly, no hernia BACK: no CVA tenderness EXTREMITIES: atraumatic; no edema NEUROLOGIC: awake; alert and oriented x4; cranial nerves II-XII grossly intact; no focal sensory or motor deficits. No dysmetria, intention tremor, staccato speech, dysdiadochokinesia. PSYCHIATRIC: appropriate mood and affect SKIN: warm, dry, normal color; no rashes Course Course Course Narrative: 20:06 chest x-ray: CXR shows normal cardiac silhouette, normal sharp diaphragmatic edge, no infiltrates, normal costophrenic angles, according to my interpretation. EKG timed 05:40 (either wrong time or patient got this EKG elsewhere) normal sinus rhythm at 82 with normal axis, no ectopy, Q waves in V1 and V2, no acute ischemia EKG timed at 18:27 normal sinus rhythm at 75 with a normal axis, no ectopy no acute ischemia 20:12 patient took her Plavix and aspirin today already. Her troponins are elevated. Usually they are normal. There is no acute ischemia on her EKG. She will need admission. Her heart score is a 5 for hypercholesterolemia, age, suspicious story, elevated troponins, indicating she is at a moderate risk for a cardiac event. 20:23 I spoke with the resident for Dr. Lancaster. I will order the heparin bolus and leave it to them to order the drip. Will order Inch of nitropaste of the chest. Accepts the patient for admission. Quality Measures none Orders Category Date Time Status COVID-19 Screening Questionnaire NOW Care 11/12/24 20:50 Active Director Of Manufacturing Operations STAT Care 11/12/24 18:36 Active Continuous Pulse Oximetry NOW Care 11/12/24 18:36 Completed Decision to Admit X1 Care 11/12/24 20:50 Completed EKG (ED ONLY) *Do not use* NOW Care 11/12/24 18:21 Completed Insert IV STAT Care 11/12/24 18:36 Completed Notify provider NOW Care 11/12/24 20:52 Active EKG (ED Only) Stat Exams 11/12/24 18:20 Draft XR chest 1V portable Stat Exams 11/12/24 18:36 Completed B-Type Natriuretic Peptide Stat Lab 11/12/24 18:42 Completed Blood Culture (Lab) Stat Lab 11/12/24 20:42 Results CBC Stat Lab 11/12/24 18:42 Completed Comprehensive Metabolic Panel Stat Lab 11/12/24 18:42 Completed Lipase Stat Lab 11/12/24 18:42 Completed Magnesium Stat Lab 11/12/24 18:42 Completed Partial Thromboplastin Time Stat Lab 11/12/24 18:42 Completed Prothrombin Time with INR Stat Lab 11/12/24 18:42 Completed Troponin I Stat Lab 11/12/24 18:42 Completed Urinalysis Stat Lab 11/12/24 19:00 Completed Aspirin Med 11/12/24 20:41 Discontinued 325 mg PO X1 ONE Aspirin [Ecotrin] Med 11/13/24 09:00 Active 81 mg PO QDAY Clopidogrel [Plavix] Med 11/12/24 20:41 Discontinued 300 mg PO X1 ONE Heparin Inj Med 11/12/24 20:21 Discontinued 4,000 unit IV X1 ONE Heparin/D5w 25K 250 ML Ivpb [Heparin in D5w Ivpb] Med 11/12/24 21:00 Discontinued 25,000 unit in 250 ml IV 10.5 units/kg/hr Meclizine HCl [Antivert] Med 11/12/24 18:40 Discontinued 25 mg PO X1 ONE Nitroglycerin Oint 2% [Nitro-paste Oint 2%] Med 11/12/24 20:23 Discontinued 1 inch TOP X1 ONE cefTRIAXone/D5w 1gm IV premix [Rocephin/D5w 1gm IV Med 11/12/24 20:07 Discontinued premix] 1 gm in 50 ml IV X1 Oxygen Delivery NOW RT 11/12/24 18:36 Active Vital Signs Vital signs: Vital Signs Temperature 98.7 F 11/12/24 18:16 Pulse Rate 68 11/12/24 18:16 Respiratory Rate 20 11/12/24 18:16 Blood Pressure 151/108 H 11/12/24 18:16 Pulse Oximetry (%) 94 L 11/12/24 18:16 Oxygen Delivery Method Room Air 11/12/24 18:16 Dizziness MDM Narrative MDM Narrative:: Scribe Attestation: I, Coco Shey, am scribing for and in the presence of Dr. Crowley. Provider Notation: Although this document has been carefully reviewed, there may still be some phonetic and other typographical errors.? These errors are purely grammatical due to imperfections in the software program and should not be construed in any way to? compromise the substance of the patient's medical care during this visit. Patient data External records reviewed:: [facility] previous records (Reviewed prior ED records from 08/22/24. Patient was seen for Dizziness.) Clinical information provided by:: patient Social determinants that could affect healthcare access:: none Patient has the following chronic illnesses:: Cerebrovascular Accident, Seizures, Migraine CARDIAC: Positive Cardiac Disorders, Atrial Fibrillation, Angina, Congestive Heart Failure, Deep Vein Thrombosis, Hypertension, Hypotension, Chronic Obstructive Pulmonary Disease (COPD), Tuberculosis, Pulmonary Embolism, Gastroesophageal Reflux Disease, Obesity, Renal Disease, Kidney Stones, Arthritis, Rheumatoid Arthritis, Diabetes Mellitus Type 2, Hypoglycemia, Anemia, Depression and Anxiety How is presenting disease/condition affected by chronic disease/condition?: exacerbated by Evaluation data The following diagnostics were reviewed and interpreted by me:: lab results, radiology exam(s) and EKG tracing(s) (EKG at 1827 shows normal sinus rhythm at 75, normal axis, no ectopy, NON-STEMI, per my interpretation.) Lab and/or radiology exams considered but not ordered:: None Interpretation Summary: RADIOLOGY Chest X-Ray: Patient: BARBIE SWEENEY [facility]. Record#: [id number] Birthdate: 1950 Age/Sex: 74 / F Location: [facility] Attending Dr: Ordering Physician: Sea Crowley MD Date of Service: 11/12/24 Procedure(s): XR chest 1V portable Accession Number(s): [id number] cc: Sen Valdez MD; Alfred aBiley MD; Sea Crowley MD~ Examination: AP chest single view TECHNIQUE: AP portable upright chest single view Date and time: November 12, 2024, 1940 hours Comparison March 25, 2024 INDICATIONS: Such as pain today. FINDINGS: Minimal prominence left ventricle Mild elevation right hemidiaphragm. Mild vascular congestion. Suspicious for early pneumonia left base, obscuring detail left hemidiaphragm Prominent osteopenia. IMPRESSION: Suspicious for early pneumonia left base Dictated By: Alfred Bailey MD Signed By: <Electronically signed by Alfred Bailey MD in OV> 11/12/242042 Carotid Doppler Study: Patient: BARBIE SWEENEY [facility]. Record#: [id number] Birthdate: 1950 Age/Sex: 74 / F Location: [address]: Jackson (HOSPITALIST) Anisha STRATTON Ordering Physician: Enio Wills MD Date of Service: 11/12/24 Procedure(s): US carotid duplex Accession Number(s): [id number] cc: Sen Valdez MD; Alfred Bailey MD; Enio Wills MD~ Examination: Carotid arterial duplex scan, ultrasound. Date and time of exam: November 12, 2024 2140 hours INDICATIONS: Chest pain and dizziness episodes beginning 2 days ago Technique: Multiple sonographic images have been obtained of the carotid arteries and vertebral arteries, B-mode/grayscale imaging and Doppler spectral analysis and color flow Peak systolic and diastolic velocities have been recorded. Systolic diastolic ratios have been calculated. Findings: Right peak systolic velocities: Distal internal carotid artery peak systolic velocity is 0.7 M/sec Proximal internal carotid artery peak systolic velocity is 0.9 M/sec Carotid bifurcation peak systolic velocity is 0.9 M/sec External carotid artery peak systolic velocity is 1.0 M/sec Vertebral artery flow is antegrade. Left peak systolic velocities: Distal internal carotid artery peak systolic velocity is 0.7 M/sec Proximal internal carotid artery peak systolic velocity is 0.8 M/sec Carotid bifurcation peak systolic velocity is 0.8 M/sec External carotid artery peak systolic velocity is 1.2 M/sec Vertebral artery flow is antegrade Doppler waveform analysis demonstrates no spectral broadening Impression: Right internal carotid artery demonstrates 0-10% stenosis. Left internal carotid artery demonstrates 0-10% stenosis. Incidental note thyromegaly Dictated By: Alfred Bailey MD Signed By: <Electronically signed by Alfred Bailey MD in OV> 11/12/24 2207 LABS Coagulation: PT 12.8. Chemistry: Glucose 142, Magnesium 2.8,l Troponin I 0.071. Repeat Troponin I 0.058. Urine: Urine Clarity Turbid, Urine Protein 1+, Urine Blood 3+, Urne RBC 430, Urine WBC 116, Calcium Oxalate Crystal 2+, Urine Bacteria 1+. Medications / Prescriptions Medications or Prescriptions considered but not ordered:: None Medication administrations:: Medication Administration History Acetaminophen (Acetaminophen 325 Mg Tablet) 650 mg PO Q6H PRN PRN Reason: Fever >100 Stop: 12/12/24 20:52 Acetaminophen (Acetaminophen 325 Mg Tablet) 1,000 mg PO Q6H PRN PRN Reason: PAIN SCALE 1-3 (mild Stop: 12/12/24 20:57 Albuterol/Ipratropium (Albuterol/Ipratropium (Duoneb) Rt Kary 3 Ml Nebu) 3 ml INH Q2HR PRN PRN Reason: SHORTNESS OF BREATH OR WHEEZE Stop: 12/12/24 21:31 Aspirin (Aspirin Ec 81 Mg Tabec) 81 mg PO QDAY JOMAR Stop: 12/13/24 08:59 Last Admin: 11/13/24 08:24 Dose: 81 mg Documented By: JAUN Atorvastatin Calcium (Atorvastatin Calcium 20 Mg Tablet) 40 mg PO HS JOMAR Stop: 12/13/24 20:59 Last Admin: 11/13/24 20:26 Dose: 40 mg Documented By: Clopidogrel Bisulfate (Clopidogrel Bisulfate 75 Mg Tablet) 75 mg PO QDAY [facility] Stop: 12/13/24 08:59 Last Admin: 11/13/24 08:24 Dose: 75 mg Documented By: JAUN Dextrose (Dextrose 50%-Water Inj 50 Ml Syringe) 25 ml IV Q15MIN PRN PRN Reason: BG 50-70 responsive npo pt Stop: 12/12/24 21:08 Dextrose (Dextrose 50%-Water Inj 50 Ml Syringe) 50 ml IV Q15MIN PRN PRN Reason: BG <50 OR BG <70 & pt unresponsive Stop: 12/12/24 21:08 Glucagon (Glucagon Inj 1 Mg Vial) 1 mg IM Q15MIN PRN PRN Reason: BG <70, and no IV access Heparin Sodium/Dextrose (Heparin In D5w Ivpb) 25,000 unit in 250 mls @ 17.146 mls/hr IV .[id number] [facility]; Protocol Stop: 11/27/24 02:29 Last Titration: 11/14/24 03:30 Dose: 16.4 units/kg/hr, 15.622 mls/hr Documented By: Co-signed By: LYNN Admin: 11/13/24 20:30 Dose: 16.4 units/kg/hr, 15.622 mls/hr Documented By: Co-signed By: JAVIER Titration: 11/13/24 20:30 Dose: Infused Documented By: Co-signed By: JAVIER Titration: 11/13/24 12:38 Dose: 14.4 units/kg/hr, 13.717 mls/hr Documented By: JAUN Co-signed By: Titration: 11/13/24 06:00 Dose: 14.4 units/kg/hr, 13.717 mls/hr Documented By: MORENITA Co-signed By: ABIMBOLA Admin: 11/13/24 03:00 Dose: 10.4 units/kg/hr, 9.906 mls/hr Documented By: MORENITA Co-signed By: ABIMBOLA Insulin Human Lispro (Insulin Lispro (Admelog) 1 Unit/0.01 Ml Unit) 0 unit SC AC [facility]; Protocol Stop: 12/13/24 07:29 Last Admin: 11/13/24 17:29 Dose: Not Given Documented By: JAUN Non-Admin Reason: Per Protocol Admin: 11/13/24 12:32 Dose: Not Given Documented By: JAUN Non-Admin Reason: Per Protocol Admin: 11/13/24 08:14 Dose: Not Given Documented By: JAUN Non-Admin Reason: Per Protocol Metoprolol Tartrate (Metoprolol Tartrate 25 Mg Tablet) 12.5 mg PO BID [facility] Stop: 12/13/24 08:59 Last Admin: 11/13/24 20:26 Dose: 12.5 mg Documented By: Admin: 11/13/24 08:24 Dose: 12.5 mg Documented By: JAUN Nitroglycerin (Nitroglycerin 0.4 Mg Subl Btl #25) 0.4 mg SL Q5MIN PRN PRN Reason: CHEST PAIN Ondansetron HCl (Ondansetron Inj 2 Mg/Ml Inj 2 Ml) 4 mg IVP Q6H PRN; Protocol PRN Reason: NAUSEA OR VOMITING Stop: 12/12/24 20:52 Pantoprazole Sodium (Pantoprazole Inj 40 Mg Vial) 40 mg IVP QDAY [facility] Stop: 12/13/24 08:59 Last Admin: 11/13/24 08:24 Dose: 40 mg Documented By: JAUN Discontinued Medications Aspirin (Aspirin 325 Mg Tablet) 325 mg PO X1 ONE Stop: 11/12/24 20:42 Last Admin: 11/12/24 21:18 Dose: 325 mg Documented By: JEREMY Clopidogrel Bisulfate (Clopidogrel Bisulfate 75 Mg Tablet) 300 mg PO X1 ONE Stop: 11/12/24 20:42 Last Admin: 11/12/24 21:18 Dose: 300 mg Documented By: JEREMY Heparin Sodium (Porcine) (Heparin Sod Inj 5000 Unit/Ml Vial) 4,000 unit IV X1 ONE; Protocol Stop: 11/12/24 20:22 Last Admin: 11/13/24 00:28 Dose: Not Given Documented By: JESS Non-Admin Reason: Discontinued Heparin Sodium (Porcine) (Heparin Sod Inj 5000 Unit/Ml Vial) 4,000 unit IVP X1 ONE Stop: 11/12/24 23:04 Last Admin: 11/12/24 23:35 Dose: 4,000 unit Documented By: JESS Co-signed By: JEREMY Heparin Sodium (Porcine) (Heparin Sod Inj 5000 Unit/Ml Vial) 8,000 unit IV X1 ONE; Protocol Stop: 11/13/24 05:40 Last Admin: 11/13/24 06:06 Dose: 8,000 unit Documented By: MORENITA Co-signed By: DAILY Heparin Sodium (Porcine) (Heparin Sod Inj 5000 Unit/Ml Vial) 4,000 unit IV X1 ONE Stop: 11/13/24 20:01 Last Admin: 11/13/24 20:30 Dose: 4,000 unit Documented By: SA Co-signed By: WB Ceftriaxone Sodium/Dextrose (Rocephin/D5w 1gm Iv Premix) 1 gm in 50 mls @ 100 mls/hr IV X1 ONE Stop: 11/12/24 20:36 Last Infusion: 11/12/24 21:48 Dose: Infused Documented By: Admin: 11/12/24 21:18 Dose: 100 mls/hr Documented By: EF Heparin Sodium/Dextrose (Heparin In D5w Ivpb) 25,000 unit in 250 mls @ 10.002 mls/hr IV .Q24H JOMAR; Protocol Stop: 11/26/24 20:59 Last Admin: 11/12/24 23:35 Dose: 10.4 units/kg/hr, 9.906 mls/hr Documented By: RC Co-signed By: CVL Meclizine HCl (Meclizine Hcl 25 Mg Tablet) 25 mg PO X1 ONE Stop: 11/12/24 18:41 Last Admin: 11/12/24 18:47 Dose: 25 mg Documented By: EF Morphine Sulfate (Morphine Sulf Inj 10 Mg/Ml Vial) 2 mg IVP Q2H PRN PRN Reason: PAIN SCALE 7-10 (Severe Stop: 11/17/24 20:57 Nitroglycerin (Nitroglycerin Oint 2% 1 Inch Packet) 1 inch TOP X1 ONE Stop: 11/12/24 20:24 Last Admin: 11/12/24 22:57 Dose: Not Given Documented By: EF Non-Admin Reason: Change of Condition See above if any Consultations Consultation(s) initiated? (list below): Yes Consultation #1 (Physician, Specialty, Details): Dr. Lancaster, our Hospitalist, made aware of the patient?s HPI, PMHx, lab and/or radiology results. Treatment plan was discussed. Will admit for further evaluation and management. Accepts patient for admission. Time: 20:20 Diagnosis Most likely diagnosis given after review of the tests above:: Refer to clinical impression below Admission Indicated Admission indicated?: indicated Explain why admission is indicated or not indicated:: NON-STEMI, UTI Admission Request Was there a request for admission?: Yes Admission Attestation Admission request attestation: Discussed case with [] from Hospitalist service regarding admission. Discussed patients ED course, exam findings, labs, and radiology results. The Hospitalist [agrees,declines] to accept the patient for admission. Disposition Plan Disposition Plan: Admit Critical Care Time Critical Care Time Critical Care Time: Yes Total Critical Care Time (min.): 35 Attestation: The high probability of sudden, clinically significant deterioration in the patient?s condition required the highest level of my preparedness to intervene urgently. The services I provided to this patient were to treat and/or prevent clinically significant deterioration. Services included the following: chart data review, reviewing nursing notes and/or old charts, documentation time, multi site leasing consultant collaboration regarding findings and treatment options, medication orders and management, direct patient care, vital sign assessments and ordering, interpreting and reviewing diagnostic studies and lab tests. Aggregate critical care time includes only time during which I was engaged in work directly related to the patient?s care, as described above, whether at bedside or elsewhere in the Emergency Department. It did not include time spent performing other reported procedures or the services of residents, students, nurses or physician assistants. Discharge Plan Plan Patient Disposition: Admit Acute Care w/in Hospital Problem List Clinical Impression: Non-STEMI (non-ST elevated myocardial infarction), UTI (urinary tract infection)
[2024-11-12 19:07] LABS: INR 1.2 (0.9-1.3); Partial Thromboplastin Time 30.7 Seconds (22.0-36.0); Prothrombin Time 12.8 Seconds (9.0-12.2)
[2024-11-12 19:24] LABS: B-Type Natriuretic Peptide 50 pg/mL (0-100)
[2024-11-12 19:30] LABS: Collection Type, Urine Clean Catch
[2024-11-12 19:46] LABS: Bacteria,Urine 1+; Bilirubin,Urine Negative (Negative); Blood,Urine 3+ (Negative); Calcium Oxalate Crystals,Urine 2+; Clarity,Urine Turbid (Clear/Hazy); Color,Urine Yellow (Lt Yel-Yel); Glucose, Urine Negative (Negative); Hyaline Casts,Urine < 1 /hpf (0-1); Ketones,Urine Negative (Negative); Leukocyte Esterase,Urine Positive (Negative); Nitrite,Urine Negative (Negative); PH,Urine 6.5 (5.0-7.0); Protein,Urine 1+ (Neg - Trace); RBC,Urine 430 /hpf (0-3); Specific Gravity,Urine 1.025 (1.001-1.035); Squamous Epithelial Cell,Urine 1 /hpf (0-5); WBC,Urine 116 /hpf (0-5)
[2024-11-12 19:57] LABS: Alanine Aminotransferase 13 U/L (10-49); Albumin, Serum 4.1 gm/dL (3.4-4.8); Albumin/Globulin Ratio 1.8 (1.2-2.2); Alkaline Phosphatase 110 U/L (46-116); Anion Gap 10 (7-16); Aspartate Amino Transferase 18 U/L (0-34); BUN/Creatinine Ratio 18 Ratio (12-20); Bilirubin,Total 0.3 mg/dL (0.3-1.2); Blood Urea Nitrogen 14 mg/dL (9-23); Calcium 9.5 mg/dL (8.3-10.6); Calcium (Corrected) 9.5 mg/dL (8.5-10.1); Carbon Dioxide 25.2 mMol/L (20.0-31.0); Chloride 106 mMol/L (98-107); Creatinine (Component) 0.8 mg/dL (0.6-1.3); Estimated Creatinine Clearance 73.9 mL/min (>60); Globulin 2.3 gm/dL (2.3-3.5); Glucose 142 mg/dL (74-106); Lipase 38 U/L (12-53); Magnesium 2.8 mg/dL (1.6-2.6); Osmolality,Calculated 283 (275-295); Potassium 4.2 mMol/L (3.4-5.1); Sodium 141 mMol/L (136-145); Total Protein 6.4 gm/dL (5.7-8.2); eGFR > 60 See Note
[2024-11-12 20:07] LABS: Troponin I 0.071 ng/mL (0.0-0.045)
--- NOTE | 2024-11-12 20:58 | XR_ITS ---
Examination: CTA chest with intravenous contrast 2-D reconstructions 3-D reconstructions, vascular Date and time of exam: November 13, 2024 0005 hours COMPARISON: March 22, 2019 INDICATION: Chest pain shortness of breath and a clinical diagnosis pulmonary emboli CTDI: vol (mGy) 13 DLP: (mGycm) 560 Technique: Multiple axial sections of the thorax have been obtained. 3 mm slice thickness, from below the hemidiaphragms to above the apices of the lungs. Mediastinal and lung density settings have been obtained. 2-D sagittal and coronal reconstructions. 3-D angiographic renderings, 3-D volume renderings, 3D post processing, vascular maximum intensity projections obtained. Contrast administered is 75 cc Isovue 370 intravenous. Low dose protocols were performed. One or more of the following dose reduction techniques were used; automated exposure control, adjustment of the mA and/or KV according to patient size, use of iterative reconstruction technique. Findings: Thyromegaly with multiple thyroid nodules most of which are calcified No thoracic aortic aneurysmal dilatation or dissection Pulmonary artery segments are not enlarged No pulmonary artery emboli No mediastinal lymphadenopathy 8 mm nodule with tiny calcification in the left lower lobe No pneumonia or pulmonary edema Retrocardiac gastric hernia Liver irregular in contour Absent gallbladder Right renal calculi including 3 mm calculus in the right renal pelvis No hydronephrosis Impression : Negative for pulmonary artery emboli 8 mm pulmonary nodule left lower lobe, recommend 3-6 month follow-up CT chest without contrast No pneumonia or pulmonary edema Renal calculi as above
--- NOTE | 2024-11-12 21:06 | XR_ITS ---
Examination: Carotid arterial duplex scan, ultrasound. Date and time of exam: November 12, 2024 2140 hours INDICATIONS: Chest pain and dizziness episodes beginning 2 days ago Technique: Multiple sonographic images have been obtained of the carotid arteries and vertebral arteries, B-mode/grayscale imaging and Doppler spectral analysis and color flow Peak systolic and diastolic velocities have been recorded. Systolic diastolic ratios have been calculated. Findings: Right peak systolic velocities: Distal internal carotid artery peak systolic velocity is 0.7 M/sec Proximal internal carotid artery peak systolic velocity is 0.9 M/sec Carotid bifurcation peak systolic velocity is 0.9 M/sec External carotid artery peak systolic velocity is 1.0 M/sec Vertebral artery flow is antegrade. Left peak systolic velocities: Distal internal carotid artery peak systolic velocity is 0.7 M/sec Proximal internal carotid artery peak systolic velocity is 0.8 M/sec Carotid bifurcation peak systolic velocity is 0.8 M/sec External carotid artery peak systolic velocity is 1.2 M/sec Vertebral artery flow is antegrade Doppler waveform analysis demonstrates no spectral broadening Impression: Right internal carotid artery demonstrates 0-10% stenosis. Left internal carotid artery demonstrates 0-10% stenosis. Incidental note thyromegaly
--- NOTE | 2024-11-12 21:07 | PD.RESHP ---
Documentation for date of: 11/12/24 HPI History of Present Illness Chief complaint: Chest pain History of present illness: 74-year-old female with past medical history of DVT, pulmonary embolism on Xarelto, COPD, coronary artery disease, history of CVA, presented to the ED due to chest pain. Patient yesterday had episode of 10 out of 10 chest pain radiating to the left side of the neck and left arm that got relieved with nitroglycerin about 15 minutes later patient had a second episode of 10 out of 10 chest pain. This morning patient also had chest pain took nitro and is unsure if she passed out or fell asleep states she woke up about an hour after around 10 AM and then later in the day became nauseous and dizzy and came to the ED. Of note patient states that she has episodes where she gets the chest pain, palpitations and passes out as well as history of DVTs and pulmonary embolism. Patient states she had cardiac stress test done last year found to be abnormal in [place] but did not follow-up on it. When asked about previous cardiac stents patient is unsure states she had a stent placed in her neck or chest. At this time patient denies any fever, chills, shortness of breath, abdominal pain, leg swelling, recent sick contacts, recent travel urinary or bowel changes. ED course: ED vitals: BP 151/108, HR 68, saturating 94% on room air ED labs: CBC and CHEM panel unremarkable, magnesium 2.8, troponin 0.071, chest x-ray shows early left base pneumonia, EKG shows sinus rhythm In the ED patient received meclizine x 1, aspirin and Plavix loading doses, Rocephin PMHx: As above SX Hx: Hysterectomy, cholecystectomy Social Hx: Denies cigarette use, denies alcohol use, denies illicit substances including THC FH X: Both parents of heart attacks in their early 50s and brothers and sisters had heart attacks in their 40s Review of Systems Review of Systems Systems Reviewed: All systems reviewed, normal except as documented Narrative Review of Systems: All 12 systems reviewed and found normal unless otherwise stated in the HPI Exam Vital Signs Temp Pulse Resp BP Pulse Ox O2 Del Method 98.8 F 78 16 136/80 H 98 Room Air 11/12/24 19:18 11/12/24 19:18 11/12/24 19:18 11/12/24 19:18 11/12/24 19:18 11/12/24 19:18 Narrative Exam Physical Exam GENERAL: NAD, AAOx3, obese HEENT: Moist mucosa. Eyes open, symmetrical, & clear CARDIO: Heart RRR, no obvious murmurs PULM: No noted coughing/dyspnea CTA B/L, no R/W/R GI: Abdomen soft, nondistended, no pain on palpation. BSx4 SKIN/MSK/EXT: No wounds/rashes/edema/amputations, no pain on palpation. Pedal pulses present B/L NEURO: AAOx3, no focal neuro deficits, able to move all 4 extremities Results: Labs 11/12/24 18:42 11/12/24 18:42 Labs: Short CBC 11/12/24 Range/Units 18:42 WBC 6.3 (3.6-11.0) Thou/mm3 Hgb 12.8 (12.0-16.0) g/dL Hct 37.5 (36.0-46.0) % Plt Count 396 (140-440) Thou/mm3 BMP 11/12/24 18:42 Sodium 141 Potassium 4.2 Chloride 106 Carbon Dioxide 25.2 BUN 14 Creatinine 0.8 Glucose 142 H Calcium 9.5 Cardiac Enzymes 11/12/24 Range/Units 18:42 Troponin I 0.071 H* (0.0-0.045) ng/mL Liver Function 11/12/24 Range/Units 18:42 Total Bilirubin 0.3 (0.3-1.2) mg/dL AST 18 (0-34) U/L ALT 13 (10-49) U/L Alkaline Phosphatase 110 (46-116) U/L Albumin 4.1 (3.4-4.8) gm/dL Urine 11/12/24 Range/Units 19:00 Urine Color Yellow (Lt Yel-Yel) Urine Clarity Turbid A (Clear/Hazy) Urine pH 6.5 (5.0-7.0) Ur Specific [place] 1.025 (1.001-1.035) Urine Protein 1+ A (Neg - Trace) Urine Glucose (UA) Negative (Negative) Quality Measures Quality Measures none Advance care planning discussed with:: patient Medications Home Medications and Allergies Home Medications ?Medication ?Instructions ?Recorded ?Confirmed ?Type fluticasone propionate 50 1 spray intranasal BID PRN 08/18/18 04/03/24 History mcg/actuation nasal Congestion spray,suspension albuterol sulfate 90 mcg/actuation 2 puff inhalation QDAY PRN sob 03/22/19 04/03/24 History aerosol inhaler (Ventolin HFA) omeprazole 20 mg capsule,delayed 20 mg PO QDAY 03/22/19 04/03/24 History release atomoxetine 40 mg capsule 40 mg PO QAM 11/23/23 04/03/24 History atorvastatin 40 mg tablet 40 mg PO QPM 11/23/23 04/03/24 History meclizine 25 mg tablet 25 mg PO BID PRN Dizziness 11/23/23 04/03/24 History montelukast 10 mg tablet 10 mg PO QDAY 11/23/23 04/03/24 History ondansetron HCl 8 mg tablet 8 mg PO BID PRN Nausea And Vomiting 01/18/24 04/03/24 History nitroglycerin 0.4 mg sublingual 0.4 mg buccal [id number] PRN Chest 02/08/24 04/03/24 History tablet Pain ciprofloxacin HCl 500 mg tablet 500 mg PO BID 04/03/24 04/03/24 History (Cipro) ibuprofen 800 mg tablet 800 mg PO Q8H PRN Pain 04/03/24 04/03/24 History ondansetron 4 mg disintegrating 8 mg PO BID PRN Nausea 04/03/24 04/03/24 History tablet rivaroxaban 20 mg tablet (Xarelto) 20 mg PO QDAY 04/03/24 04/03/24 History Allergies Allergy/AdvReac Type Severity Reaction Status Date / Time morphine Allergy Severe Itching Verified 08/22/24 15:01 codeine AdvReac Severe UPSET Verified 08/22/24 15:01 STOMACH Visit Medications Acetaminophen (Acetaminophen 325 Mg Tablet) 650 mg PO Q6H PRN PRN Reason: Fever >100 Stop: 12/12/24 20:52 Acetaminophen (Acetaminophen 325 Mg Tablet) 1,000 mg PO Q6H PRN PRN Reason: PAIN SCALE 1-3 (mild Stop: 12/12/24 20:57 Aspirin (Aspirin Ec 81 Mg Tabec) 81 mg PO QDAY JOMAR Stop: 12/13/24 08:59 Heparin Sodium/Dextrose (Heparin In D5w Ivpb) 25,000 unit in 250 mls @ 11.43 mls/hr IV .[id number] JOMAR; Protocol Stop: 11/26/24 20:59 Morphine Sulfate (Morphine Sulf Inj 10 Mg/Ml Vial) 2 mg IVP Q2H PRN PRN Reason: PAIN SCALE 7-10 (Severe Stop: 11/17/24 20:57 Nitroglycerin (Nitroglycerin 0.4 Mg Subl Btl #25) 0.4 mg SL Q5MIN PRN PRN Reason: CHEST PAIN Ondansetron HCl (Ondansetron Inj 2 Mg/Ml Inj 2 Ml) 4 mg IVP Q6H PRN; Protocol PRN Reason: NAUSEA OR VOMITING Stop: 12/12/24 20:52 Pantoprazole Sodium (Pantoprazole Inj 40 Mg Vial) 40 mg IVP QDAY [facility] Stop: 12/13/24 08:59 Discontinued Medications Aspirin (Aspirin 325 Mg Tablet) 325 mg PO X1 ONE Stop: 11/12/24 20:42 Clopidogrel Bisulfate (Clopidogrel Bisulfate 75 Mg Tablet) 300 mg PO X1 ONE Stop: 11/12/24 20:42 Heparin Sodium (Porcine) (Heparin Sod Inj 5000 Unit/Ml Vial) 4,000 unit IV X1 ONE; Protocol Stop: 11/12/24 20:22 Ceftriaxone Sodium/Dextrose (Rocephin/D5w 1gm Iv Premix) 1 gm in 50 mls @ 100 mls/hr IV X1 ONE Stop: 11/12/24 20:36 Meclizine HCl (Meclizine Hcl 25 Mg Tablet) 25 mg PO X1 ONE Stop: 11/12/24 18:41 Last Admin: 11/12/24 18:47 Dose: 25 mg Nitroglycerin (Nitroglycerin Oint 2% 1 Inch Packet) 1 inch TOP X1 ONE Stop: 11/12/24 20:24 Assessment & Plan Plan 74-year-old female with past medical history of DVT, pulmonary embolism on Xarelto, COPD, coronary artery disease, history of CVA, presented to the ED due to chest pain. Admitted for ACS workup. #Chest pain/ACS rule out #Syncope #History of DVTs and pulmonary embolism Patient presented with 10 out of 10 chest pain radiating to left side of the neck and left arm that was relieved with nitroglycerin patient the past 24 hours has had 3 episodes of severe chest pain patient also states that whenever she has these chest pain episodes she passes out. Troponins were elevated on admission 0.071 Patient also has history of DVTs and pulmonary embolisms on Xarelto last 1 being close to a year ago Patient last year had abnormal stress testing done in [place] but did not follow-up on it Patient states she also had a stent placed in the neck but is unsure FRANCIS score: 5-6; 41% risk at 14 days of: all-cause mortality, new or recurrent NH, or severe recurrent ischemia requiring urgent revascularization Heart score: 6; moderate 4?6, risk of major cardiac events 12-16% Wells score: 7.5; high risk Last echo: January 2024: Normal LV size and function. Stage I diastolic dysfunction. Mild LVH. Estimated EF 70% Normal RV size and function. Trace MR, TR. Mild AV sclerosis without stenosis. ? Aspirin 325 x 1, Plavix loading doses ? Aspirin 81 mg and Plavix ? Echo ordered ? Heparin drip ? Sublingual nitroglycerin as needed for chest pain ? Follow-up CTA angio chest ? Follow-up troponins, will trend until peaked ? Follow-up TSH, lipid panel, A1c ? Follow-up carotid ultrasound ? Cardiology consulted, appreciate recs #History of vertigo Not dizzy at this time ? Consider resuming meclizine #History of COPD Not in acute exacerbation ?DuoNebs as needed #Diabetes mellitus type 2 Last A1c: 8.5 (2023) ? SSI ? Hypoglycemia protocol in place Health Maintenance: Disposition: Telemetry, on heparin drip, ACS rule out Fluids: None Feeding: N.p.o. Thrombo prophylaxis: Heparin drip Gastric Ulcer prophylaxis: Pantoprazole CODE STATUS: DNR Case discussed with my attending Dr. Anisha Valdez MD PGY-1 Attending Provider Attestation/Addendum Face to face evaluation was performed by me. I have personally seen and examined the patient. I discussed the assessment and plan with the entire medicine team. I reviewed available medical records, imaging studies, laboratory results. I agree with the above subjective data, objective findings, assessment and plan except as corrected by me or noted below Chest pain, seems to be typical, intermittent Elevated toponin I suspect type 2 NSTEMI demand ischemia Hx of VTE- DVT HLD - Multiple risk factors for CAD, per patient she had stress test and looks like [facility] in [place] with Cardiology there- results not available- per patient it was abnormal - Continue DAPT -Hep drip bridging instead of xarelto for now in case she needs C - Cardiology consulted NPO after midnight More than > 30 minutes spent on the encounter
[2024-11-12] MEDS: CLOPIDOGREL BISULFATE 75 MG TABLET 300 MG PO (21:18)
[2024-11-12] MEDS: cefTRIAXone/D5w 1gm IV premix 1 GM/50 ML BAG IV (21:18)
[2024-11-12] MEDS: Aspirin 325 MG TABLET PO (21:18)
[2024-11-12 22:43] LABS: Troponin I 0.058 ng/mL (0.0-0.045)
[2024-11-12] MEDS: HEPARIN SOD INJ 5000 UNIT/ML VIAL 4000 UNIT IVP (23:35)
[2024-11-12] MEDS: Heparin/D5w 25K 250 ML Ivpb 25,000 UNIT/250 ML BAG 9.906 UNIT IV (23:35)
[2024-11-13] VITALS (61 sets, daily range): BP systolic 122–170; BP diastolic 77–105; PULSE 69–85; RESP 7–100; TEMP 36.1–36.9; O2SAT 84–100
--- NOTE | 2024-11-13 01:27 | PRELIM_ITS ---
CT angiogram of the chest with intravenous contrast (axial sections with sagittal and coronal reformats) November 13, 2024 0005 hours Clinical History: Rule out pulmonary thromboembolism. Technique:Helical axial sections with sagittal and coronal reformats of the chest were obtained with intravenous contrast. Iterative reconstruction technique was employed to reduce patient radiation exposure. 3D/MIP reconstructed images were also provided. Comparison: None available at the time of this report. Findings: There is no filling defect within the pulmonary artery divisions to suggest pulmonary thromboembolism. The mediastinum demonstrates no evidence of mass or lymphadenopathy. The thoracic aorta is unremarkable. There is no pericardial effusion. Left lower lobe lung nodule with calcification within measuring 0.8 cm. No evidence of pleural effusion or pneumothorax. Degenerative changes of the imaged portions of the spine. Chronic multilevel disc disease. No acute fractures. Vascular calcifications. Status postcholecystectomy. Nonobstructing bilateral kidney stones. Right renal pelvis stone measuring 0.3 cm. Enlarged heterogenous nodular thyroid with calcifications. Coronary arteries calcifications. Small hiatus hernia. S/p gastric sleeve surgery. Mild irregular liver margins. Impression: 1. No CT evidence of pulmonary thromboembolism. 2. Coronary arteries calcifications. If acute myocardial infarction is clinically suspected, consider correlation with troponin. 3. Enlarged heterogenous nodular thyroid with calcifications. Correlation with thyroid function tests and ultrasound is recommended. 4. Nonobstructing bilateral nephrolithiasis. 5. Small hiatus hernia. 6. Right renal pelvis stone. 7. Left lower lobe lung nodule, follow-up in 3 months is recommended. 8. Possible cirrhosis. Report Electronically Signed By: Piotr Foster 11/13/2024 1:26:51 AM [EST]
--- NOTE | 2024-11-13 02:50 | PC.NURSE ---
Called [facility] pharmacy to verify Heparin order from ACS to DVT protocol Continue rate and titrate per DVT protocol. DO NOT INCREASE RATE TO DVT ORDER RATE aPTT orders based on DVT protocol
[2024-11-13] MEDS: Heparin/D5w 25K 250 ML Ivpb 25,000 UNIT/250 ML BAG 9.906 UNIT IV (03:00)
[2024-11-13 05:07] LABS: Basophils # (Auto) 0.1 Thou/mm3 (0.0-0.2); Basophils % (Auto) 1 % (0-2.5); Eosinophils # (Auto) 0.5 Thou/mm3 (0.0-0.5); Eosinophils % (Auto) 8 % (0-10); Immature Granulocytes % (Auto) 0 % (0-0); Immature Granulocytes Auto 0.02 Thou/mm3 (0.00-0.00); Lymphocytes # (Auto) 2.8 Thou/mm3 (1.0-4.8); Lymphocytes % (Auto) 44 % (10-50); Mean Corpuscular HGB Conc 32.4 g/dl (31.0-37.0); Mean Corpuscular Hemoglobin 30.1 pg (25.0-35.0); Mean Corpuscular Volume 93 fL (80-100); Monocytes # (Auto) 0.5 Thou/mm3 (0.0-0.8); Monocytes % (Auto) 7 % (0-12); Neutrophils # (Auto) 2.5 Thou/mm3 (1.8-7.7); Neutrophils % (Auto) 40 % (37-80); Nucleated Red Blood Cell % 0 /100 WBC (0); Platelet Count 354 Thou/mm3 (140-440); RDW Standard Deviation 48.6 fL (36.4-46.3); Red Blood Count 3.99 Miln/mm3 (4.00-5.20); White Blood Count 6.3 Thou/mm3 (3.6-11.0)
[2024-11-13 05:22] LABS: Glucose Estimated Average 143 mg/dL (80-131); Hemoglobin A1C 6.6 % Hgb (4.8-6.0)
[2024-11-13 05:24] LABS: Partial Thromboplastin Time 32.5 Seconds (22.0-36.0)
[2024-11-13] MEDS: HEPARIN SOD INJ 5000 UNIT/ML VIAL 8000 UNIT IV (06:06)
[2024-11-13 06:37] LABS: Alanine Aminotransferase 10 U/L (10-49); Albumin, Serum 3.5 gm/dL (3.4-4.8); Albumin/Globulin Ratio 1.6 (1.2-2.2); Alkaline Phosphatase 96 U/L (46-116); Anion Gap 10 (7-16); Aspartate Amino Transferase 14 U/L (0-34); BUN/Creatinine Ratio 20 Ratio (12-20); Bilirubin,Total 0.4 mg/dL (0.3-1.2); Blood Urea Nitrogen 12 mg/dL (9-23); Calcium 8.6 mg/dL (8.3-10.6); Carbon Dioxide 26.1 mMol/L (20.0-31.0); Cardiac Risk Estimate 4.3 RATIO (3.7-5.6); Chloride 110 mMol/L (98-107); Cholesterol 228 mg/dL (132-200); Creatinine (Component) 0.6 mg/dL (0.6-1.3); Estimated Creatinine Clearance 101.9 mL/min (>60); Globulin 2.2 gm/dL (2.3-3.5); Glucose 122 mg/dL (74-106); HDL Cholesterol 53 mg/dL (40-60); LDL Cholesterol,Calculated 137 mg/dL (0-130); Magnesium 2.6 mg/dL (1.6-2.6); Osmolality,Calculated 291 (275-295); Phosphorous 2.9 mg/dL (2.4-5.1); Potassium 4.1 mMol/L (3.4-5.1); Sodium 146 mMol/L (136-145); Thyroid Stimulating Hormone 0.13 uIU/mL (0.55-4.78); Total Protein 5.7 gm/dL (5.7-8.2); Triglycerides 191 mg/dL (30-150); eGFR > 60 See Note
[2024-11-13] MEDS: METOPROLOL TARTRATE 25 MG TABLET 12.5 MG PO ×2 (08:24→20:26)
[2024-11-13] MEDS: CLOPIDOGREL BISULFATE 75 MG TABLET PO (08:24)
[2024-11-13] MEDS: PANTOPRAZOLE INJ 40 MG VIAL IVP (08:24)
[2024-11-13] MEDS: ASPIRIN EC 81 MG TABEC PO (08:24)
[2024-11-13 08:33] LABS: Free T4 (Free Thyroxine) 0.85 ng/dL (0.89-1.76)
--- NOTE | 2024-11-13 11:00 | ESPR_ITS ---
<Statement entered by Senia Diaz MD - 11/21/24 13:29> I reviewed above note and agree with findings and plans. I have also personally examined the patient with medicine team and went over assessment and plan with medical team including internet technology manager and resident physician. Documentation for date of: 11/13/24 Subjective Subjective Interval history: Overnight admission. Upon further history, patient has seen Dr. Sandoval who will see patient. Additionally, when she experiences chest discomfort, there is associated shortness of breath, nausea, and at times syncopal episodes. Has not had any additional episodes while being admitted. Will continue with heparin drip and hold her Xarelto for her DVT/PE and follow-up on cardiology recommendations. Vital signs stable, she is on room air and BP 127/77. CBC unremarkable. Chem panel showed A1c 6.6%, LDL 137, TG 191, and cholesterol 228 with low TSH and T4. Troponins already downtrended. Exam Vital Signs Temp Pulse Resp BP Pulse Ox O2 Del Method 97.4 F 76 17 170/105 H 100 Room Air 11/13/24 04:00 11/13/24 08:24 11/13/24 08:23 11/13/24 08:24 11/13/24 08:23 11/13/24 04:00 Narrative Exam General: AOx3, no acute distress, able to speak full sentences HEENT: NC/AT, mucous membranes moist, bilateral sclera anicteric Cardiovascular: systolic murmur best heard over left sternal border, regular rate and rhythm, S1/S2 present Pulmonary: clear to auscultation bilaterally, no rales/rhonchi/wheezes Abdominal: soft, non-tender, non-distended, no rebound/guarding, normal bowel sounds present Musculoskeletal: normal ROM, no peripheral edema Skin: warm and dry, intact, no rashes Neuro: CN II-XII intact, no focal deficits Objective Labs 11/13/24 04:21 11/13/24 04:21 Labs: Laboratory Results - last 24 hr 11/12/24 11/12/24 11/12/24 18:42 19:00 21:57 WBC 6.3 RBC 4.21 Hgb 12.8 Hct 37.5 MCV 89 MCH 30.4 MCHC 34.1 RDW Std Deviation 46.0 Plt Count 396 Neut % (Auto) 48 Lymph % (Auto) 35 [place] % (Auto) 8 Eos % (Auto) 8 Baso % (Auto) 1 Neut # (Auto) 3.0 Lymph # (Auto) 2.2 [place] # (Auto) 0.5 Eos # (Auto) 0.5 Baso # (Auto) 0.1 Immature Gran # (Auto) 0.02 H Absolute Nucleated RBC 0.00 Immature Gran % 0 Nucleated RBC % 0 PT 12.8 H INR 1.2 APTT 30.7 Sodium 141 Potassium 4.2 Chloride 106 Carbon Dioxide 25.2 Anion Gap 10 BUN 14 Creatinine 0.8 Estim Creat Clear Calc 73.9 eGFR > 60 BUN/Creatinine Ratio [address] Glu mg/dL Hemoglobin A1c Calculated Osmolality 283 Calcium 9.5 Corrected Calcium 9.5 Phosphorus Magnesium 2.8 H Total Bilirubin 0.3 AST 18 ALT 13 Alkaline Phosphatase 110 Troponin I 0.071 H* 0.058 H* B-Natriuretic Peptide 50 Total Protein 6.4 Albumin 4.1 Globulin 2.3 Albumin/Globulin Ratio 1.8 Triglycerides Cholesterol LDL Cholesterol, Calc HDL Cholesterol Cholesterol/HDL Ratio Lipase 38 TSH Free T4 Ur Collection Type Clean Catch Urine Color Yellow Urine Clarity Turbid A Urine pH 6.5 Ur Specific [place] 1.025 Urine Protein 1+ A Urine Glucose (UA) Negative Urine Ketones Negative Urine Blood 3+ A Urine Nitrite Negative Urine Bilirubin Negative Urine Urobilinogen (Auto) 3.0 Ur Leukocyte Esterase Positive Urine RBC 430 H Urine WBC 116 H Ur Squamous Epith Cells 1 Calcium Oxalate Crystal 2+ A Urine Bacteria 1+ A Hyaline Casts < 1 11/13/24 04:21 WBC 6.3 RBC 3.99 L Hgb 12.0 Hct 37.0 MCV 93 MCH 30.1 MCHC 32.4 RDW Std Deviation 48.6 H Plt Count 354 D Neut % (Auto) 40 Lymph % (Auto) 44 [place] % (Auto) 7 Eos % (Auto) 8 Baso % (Auto) 1 Neut # (Auto) 2.5 Lymph # (Auto) 2.8 [place] # (Auto) 0.5 Eos # (Auto) 0.5 Baso # (Auto) 0.1 Immature Gran # (Auto) 0.02 H Absolute Nucleated RBC 0.00 Immature Gran % 0 Nucleated RBC % 0 PT INR APTT 32.5 Sodium 146 H Potassium 4.1 Chloride 110 H Carbon Dioxide 26.1 Anion Gap 10 BUN 12 Creatinine 0.6 Estim Creat Clear Calc 101.9 eGFR > 60 BUN/Creatinine Ratio [address] Glu mg/dL 143 H Hemoglobin A1c 6.6 H Calculated Osmolality 291 Calcium 8.6 Corrected Calcium 9.0 Phosphorus 2.9 Magnesium 2.6 Total Bilirubin 0.4 AST 14 ALT 10 Alkaline Phosphatase 96 Troponin I B-Natriuretic Peptide Total Protein 5.7 Albumin 3.5 D Globulin 2.2 L Albumin/Globulin Ratio 1.6 Triglycerides 191 H Cholesterol 228 H LDL Cholesterol, Calc 137 H HDL Cholesterol 53 Cholesterol/HDL Ratio 4.3 Lipase TSH 0.13 L Free T4 0.85 L Ur Collection Type Urine Color Urine Clarity Urine pH Ur Specific [place] Urine Protein Urine Glucose (UA) Urine Ketones Urine Blood Urine Nitrite Urine Bilirubin Urine Urobilinogen (Auto) Ur Leukocyte Esterase Urine RBC Urine WBC Ur Squamous Epith Cells Calcium Oxalate Crystal Urine Bacteria Hyaline Casts Quality Measures Quality Measures none Advance care planning discussed with:: patient Assessment & Plan Assessment Current Active Medications: Generic Name Dose Route Start Last Admin Trade Name Freq PRN Reason Stop Dose Admin Acetaminophen 650 mg 11/12/24 20:53 Acetaminophen 325 Mg Tablet PO 12/12/24 20:52 Q6H PRN Fever >100 Acetaminophen 1,000 mg 11/12/24 20:58 Acetaminophen 325 Mg Tablet PO 12/12/24 20:57 Q6H PRN PAIN SCALE 1-3 (mild Albuterol/Ipratropium 3 ml 11/12/24 21:32 Albuterol/Ipratropium (Duoneb) Rt Kary 3 Ml Nebu INH 12/12/24 21:31 Q2HR PRN SHORTNESS OF BREATH OR WHEEZE Aspirin 81 mg 11/13/24 09:00 11/13/24 08:24 Aspirin Ec 81 Mg Tabec PO 12/13/24 08:59 81 mg QDAY JOMAR Administration Atorvastatin Calcium 40 mg 11/13/24 21:00 Atorvastatin Calcium 20 Mg Tablet PO 12/13/24 20:59 HS JOMAR Clopidogrel Bisulfate 75 mg 11/13/24 09:00 11/13/24 08:24 Clopidogrel Bisulfate 75 Mg Tablet PO 12/13/24 08:59 75 mg QDAY JOMAR Administration Dextrose 25 ml 11/12/24 21:09 Dextrose 50%-Water Inj 50 Ml Syringe IV 12/12/24 21:08 Q15MIN PRN BG 50-70 responsive npo pt Dextrose 50 ml 11/12/24 21:09 Dextrose 50%-Water Inj 50 Ml Syringe IV 12/12/24 21:08 Q15MIN PRN BG <50 OR BG <70 & pt unresponsive Glucagon 1 mg 11/12/24 21:09 Glucagon Inj 1 Mg Vial IM Q15MIN PRN BG <70, and no IV access Heparin Sodium/Dextrose 25,000 unit in 250 mls @ 17.146 mls/hr 11/13/24 02:30 11/13/24 06:00 Heparin In D5w Ivpb IV 11/27/24 02:29 14.4 units/kg/hr .[id number] JOMAR 13.717 mls/hr Titration Protocol 18 UNITS/KG/HR Insulin Human Lispro 0 unit 11/13/24 07:30 11/13/24 08:14 Insulin Lispro (Admelog) 1 Unit/0.01 Ml Unit SC 12/13/24 07:29 Not Given AC JOMAR Protocol Metoprolol Tartrate 12.5 mg 11/13/24 09:00 11/13/24 08:24 Metoprolol Tartrate 25 Mg Tablet PO 12/13/24 08:59 12.5 mg BID JOMAR Administration Nitroglycerin 0.4 mg 11/12/24 21:03 Nitroglycerin 0.4 Mg Subl Btl #25 SL Q5MIN PRN CHEST PAIN Ondansetron HCl 4 mg 11/12/24 20:53 Ondansetron Inj 2 Mg/Ml Inj 2 Ml IVP 12/12/24 20:52 Q6H PRN NAUSEA OR VOMITING Protocol Pantoprazole Sodium 40 mg 11/13/24 09:00 11/13/24 08:24 Pantoprazole Inj 40 Mg Vial IVP 12/13/24 08:59 40 mg QDAY JOMAR Administration Plan Angi Hernandez is a 74-year-old female with a past medical history of DVT/PE on Xarelto, COPD, history of CVA who presented for chest pain and admitted for further ACS work-up. #NSTEMI type I vs type II #Chest pain #Syncope, likely cardiac #Systolic murmur Presents with 10/10 left-sided chest pain that radiated to her left arm and jaw that is associated with shortness of breath, nausea, and at times syncopal episodes. Pain is relieved with nitroglycerin. States that she has had these symptoms for years now and has undergone cardiac cath in [place] but no stents were placed per patient. Reports strong family history of CAD. Systolic murmur appreciated on exam. Initial troponin 0.07 and downtrended to 0.06. EKG without any significant ST changes or T wave abnormalities. TSH 0.13 and T4 0.85, LDL 137, cholesterol 228, TG 191. Carotid ultrasound unremarkable. FRANCIS score: 5-6; 41% risk at 14 days of: all-cause mortality, new or recurrent MD, or severe recurrent ischemia requiring urgent revascularization Heart score: 6; moderate 4?6, risk of major cardiac events 12-16% Echo 01/2024: Normal LV size and function. S1DD. Mild LVH. EF 70%. Normal RV size and function. Trace MR, TR. Mild AV sclerosis without stenosis. ? Cardiology consulted, appreciate recs ? Heparin drip ? Aspirin 81 mg, Plavix 75 mg, atorvastatin 40 mg ? Metoprolol 12.5 mg p.o. twice daily ? Echo ordered ? Sublingual nitroglycerin as needed for chest pain #History of DVTs and pulmonary embolism Wells score: 7.5 -> high risk CTA chest negative for pulmonar ? Will hold Xarelto at this time given that patient is already on heparin drip #History of vertigo Not dizzy at this time ? Consider resuming meclizine #History of COPD History of, but patient states that she only somked 2-3 cigarettes per day. Not in acute exacerbation. ? DuoNebs as needed #Type 2 diabetes mellitus A1c 6%. ? SSI ? Hypoglycemia protocol in place Hospital management: Disposition: pending cardiology recommendations Diet: NPO for possible procedure Lines: PIV DVT prophylaxis: heparin drip GI prophylaxis: Pantoprazole 40 mg IV daily CODE STATUS: DNR ----- Plan discussed with attending physician Dr. Emily Wei MD PGY-1 Internal Medicine
[2024-11-13 12:22] LABS: Partial Thromboplastin Time 57.8 Seconds (22.0-36.0)
--- NOTE | 2024-11-13 16:18 | PC.SS ---
Update: Patient is on room air. No pressor support. Receiving Heparin drip. NPO. Cardiology is consulting. D/G to Tele.
[2024-11-13 19:10] LABS: Partial Thromboplastin Time 38.8 Seconds (22.0-36.0)
[2024-11-13] MEDS: ATORVASTATIN CALCIUM 20 MG TABLET 40 MG PO (20:26)
[2024-11-13] MEDS: Heparin/D5w 25K 250 ML Ivpb 25,000 UNIT/250 ML BAG 15.622 UNIT IV (20:30)
[2024-11-13] MEDS: HEPARIN SOD INJ 5000 UNIT/ML VIAL 4000 UNIT IV (20:30)
--- NOTE | 2024-11-13 20:58 | ECHO_ITS ---
Transthoracic Echo Report Ht (in): 66 Wt (lb): 223 Exam Location: Echo Lab Status: Inpatient Retread Technician: Chanel Delacruz Indications: Procedure Performed: BP: 158 / 90 HR: 71 Technical Quality: Technically Difficult Due To Patient Supine/ICU MEASUREMENTS (Male / Female) Normal Values 2D ECHO LV Diastolic Diameter PLAX 5.0 cm 4.2 - 5.9 / 3.9 - 5.3 cm LV Systolic Diameter PLAX 2.4 cm IVS Diastolic Thickness 1.0 cm 0.6 - 1.0 / 0.6 - 0.9 cm LVPW Diastolic Thickness 1.2 cm 0.6 - 1.0 / 0.6 - 0.9 cm LV Relative Wall Thickness 0.4 LVOT Diameter 2.0 cm LA Volume Index 26.7 cm?/m? 16 - 28 cm?/m? DOPPLER AV Peak Velocity 241.0 cm/s AV Peak Gradient 23.2 mmHg AV Mean Gradient 12.0 mmHg AV Velocity Time Integral 47.2 cm LVOT Peak Velocity 103.0 cm/s LVOT Peak Gradient 4.2 mmHg LVOT Velocity Time Integral 31.9 cm LVOT Cardiac Index 3215.2 cm?/min?m? AV Area Cont Eq vti 2.1 cm? AV Area Cont Eq pk 1.3 cm? MV Area PHT 3.1 cm? Mitral E Point Velocity 73.7 cm/s Mitral A Point Velocity 98.5 cm/s Mitral E to A Ratio 0.7 LV E' Lateral Velocity 9.0 cm/s Mitral E to LV E' Lateral Ratio 8.2 LV E' Septal Velocity 7.6 cm/s Mitral E to LV E' Septal Ratio 9.7 PV Peak Velocity 93.3 cm/s PV Peak Gradient 3.5 mmHg FINDINGS Left Ventricle Normal left ventricular size, systolic function with no obvious regional wall motion abnormalities. Normal left ventricular diastolic filling pattern for age. The ejection fraction is visually estimated at 65%. The left ventricular wall thickness is mildly increased. Right Ventricle The right ventricle is normal in size and systolic function. The estimated right ventricular systolic pressure, 10 mmHg. Left Atrium The left atrium is normal by two-dimensional, color flow and Doppler imaging with no structural abnormalities, no thrombus formation present. Right Atrium The right atrium is normal by two-dimensional imaging, color flow and Doppler imaging with no structural abnormalities, no thrombus formation present. Atrial Septum The interatrial septum appears normal with no evidence of a shunt. Aorta The aorta is normal by two-dimensional, color flow and Doppler interrogation. Mitral Valve There is mild mitral annular calcification with no significant mitral valve regurgitation. Aortic Valve The aortic valve is moderately calcified with mild aortic valve stenosis. There is no aortic valve regurgitation. Tricuspid Valve The tricuspid valve is normal by two-dimensional, color flow and Doppler interrogation. There is no significant tricuspid valve regurgitation. Pulmonic Valve The pulmonic valve is not well visualized. There is no significant pulmonic valve regurgitation. Vessels The pulmonary artery appears normal. The inferior vena cava is enlarged with poor respiratory collapse. The hepatic veins appear normal. Pericardium The pericardium is normal by two-dimensional imaging. There is no significant pericardial effusion. CONCLUSIONS Indications: Chest Pain Normal LV size and systolic function with an estimated EF of 65%. Mild LVH. Normal right heart structures Moderate Aortic Valve calcification with mild VMAx 2.4 m/sec IVC dilated. Francisca Goldstein (Electronically Signed) Final Date: 13 November 2024 19:47
--- NOTE | 2024-11-13 23:57 | ESCONSULT_ITS ---
RE: BARBIE SWEENEY : 1950 DATE OF CONSULTATION: 11/13/2024 CONSULTING PHYSICIANS: Dr. Weeks, resident physician_ . REASON FOR CONSULTATION: Evaluation of mildly elevated troponin level, classic chest pain. HISTORY OF PRESENT ILLNESS: The patient is a 74-year-old female with a past medical history of hypertension, DVT, pulmonary embolism on Xarelto, COPD, coronary artery disease, history of stroke in the past, presented to the hospital with severe substernal crushing chest pain radiating towards the left side of the neck and left arm. She got relieved with 2 nitroglycerin 15 minutes later. The patient has had another episode of chest pain 03/21. She had a chest pain, took multiple nitroglycerin. She nearly passed out, fell asleep. She woke up again around 10:00 and had another chest pain and dizziness. She came to the hospital yesterday. She did take a Xarelto in the morning and came to the hospital. Since then, did not receive any Xarelto, started on heparin ACS protocol. Troponin was slightly elevated at 0.07, but not that high. X-ray showed some possible left base pneumonia, started on empirical pneumonia treatment, also given aspirin, Plavix and heparin drip. The patient for inexplicable reason again underwent a CTA. The patient is already on Xarelto, very low likelihood of pulmonary embolism. Clinical picture does not suggest pulmonary embolism. Still in the emergency room, went on to do a CTA, which is again inappropriate procedure in this patient. The patient's clinical presentation is clearly ACS and coronary syndrome, not due to pulmonary embolism. She is on full-dose anticoagulation with Xarelto for quite a while, so the likelihood of peak pulmonary embolism is extremely remote. She is feeling a little better. She still has some chest tightness. ALLERGIES: CODEINE. MEDICATIONS: She takes Xarelto 20 mg daily. She took last dose yesterday, on 11/12. She also takes inhalers, albuterol, fluticasone nasal spray, atorvastatin 40 daily and also takes ibuprofen and ciprofloxacin. PAST MEDICAL HISTORY: Pulmonary embolism, DVT, mild hypertension, hypercholesterolemia. Other medical history includes history of diabetes mellitus as well. SOCIAL HISTORY: She was a smoker, not anymore. She does not drink alcoholic beverage. FAMILY HISTORY: Noncontributory PHYSICAL EXAMINATION: GENERAL: Moderately obese female, alert, awake and in no acute distress. VITAL SIGNS: Stable. Blood pressure is 150/78, pulse rate is 76, respirations 17, temperature normal, saturation excellent at 98% on room air. HEENT: Head is atraumatic. NECK: Supple. No JVD. CHEST: Symmetrical. LUNGS: Decreased breath sounds. No rales or rhonchi. HEART: S1, S2 regular. S4 gallop heard. ABDOMEN: Thin and soft. EXTREMITIES: No edema. GENITOURINARY AND RECTAL: Not performed. NEUROLOGIC: Normal. DIAGNOSTIC DATA: Echocardiogram showed evidence of sinus rhythm and non- sufficient changes. LABORATORY DATA: Cardiac enzymes of 0.07 and 0.05, trended down. The labs are otherwise normal. IMPRESSION/ASSESSMENT: 1. Acute coronary syndrome. Unstable angina pectoris and non-ST segment elevation myocardial infarction. 2. Chronic obstructive lung disease. 3. History of pulmonary embolism, on Xarelto chronically. 4. Hypertension. 5. Hypercholesterolemia. The patient has classic crescendo chest pain at rest, multiple episodes, 10/10, radiating to the neck and shoulders, quite suspicious of obstructive CAD. Based on history alone, I am quite concerned, coronary angiogram was recommended tomorrow morning. RECOMMENDATIONS: We will discontinue the Xarelto. She has been off since yesterday. Possibly, she would be able to do the angiogram tomorrow after 9:00 a.m. and also recommend aspirin and Plavix for now. We would like to thank you for referring this patient for cardiovascular evaluation. We would be glad to perform coronary angiogram and cardiac catheterization she has significant CAD that required intervention. Discussed with PGY1 news intern extensively and informed the plan tomorrow for possible angiogram. DT: 22:43:52 TT: 23:42:00 Ref: [id number] - TID: [id number] JOSIAH
[2024-11-14] VITALS (8 sets, daily range): BP systolic 109–146; BP diastolic 61–84; PULSE 65–81; RESP 14–99; TEMP 36.1–36.6; O2SAT 96–99
[2024-11-14 02:28] LABS: Basophils # (Auto) 0.1 Thou/mm3 (0.0-0.2); Basophils % (Auto) 1 % (0-2.5); Eosinophils # (Auto) 0.5 Thou/mm3 (0.0-0.5); Eosinophils % (Auto) 8 % (0-10); Hematocrit 37.6 % (36.0-46.0); Hemoglobin 12.8 g/dL (12.0-16.0); Immature Granulocytes % (Auto) 0 % (0-0); Immature Granulocytes Auto 0.02 Thou/mm3 (0.00-0.00); Lymphocytes # (Auto) 2.5 Thou/mm3 (1.0-4.8); Lymphocytes % (Auto) 40 % (10-50); Mean Corpuscular Hemoglobin 30.2 pg (25.0-35.0); Mean Corpuscular Volume 89 fL (80-100); Monocytes # (Auto) 0.5 Thou/mm3 (0.0-0.8); Monocytes % (Auto) 8 % (0-12); Neutrophils # (Auto) 2.7 Thou/mm3 (1.8-7.7); Neutrophils % (Auto) 43 % (37-80); Nucleated Red Blood Cell % 0 /100 WBC (0); Platelet Count 374 Thou/mm3 (140-440); RDW Standard Deviation 46.8 fL (36.4-46.3); Red Blood Count 4.24 Miln/mm3 (4.00-5.20); White Blood Count 6.3 Thou/mm3 (3.6-11.0)
[2024-11-14 02:48] LABS: Alanine Aminotransferase 11 U/L (10-49); Albumin, Serum 3.8 gm/dL (3.4-4.8); Albumin/Globulin Ratio 1.7 (1.2-2.2); Alkaline Phosphatase 101 U/L (46-116); Anion Gap 8 (7-16); Aspartate Amino Transferase 16 U/L (0-34); BUN/Creatinine Ratio 21 Ratio (12-20); Bilirubin,Total 0.4 mg/dL (0.3-1.2); Blood Urea Nitrogen 15 mg/dL (9-23); Calcium 9.5 mg/dL (8.3-10.6); Calcium (Corrected) 9.7 mg/dL (8.5-10.1); Carbon Dioxide 25.9 mMol/L (20.0-31.0); Chloride 106 mMol/L (98-107); Creatinine (Component) 0.7 mg/dL (0.6-1.3); Estimated Creatinine Clearance 87.3 mL/min (>60); Globulin 2.3 gm/dL (2.3-3.5); Glucose 128 mg/dL (74-106); Magnesium 2.7 mg/dL (1.6-2.6); Osmolality,Calculated 282 (275-295); Phosphorous 4.6 mg/dL (2.4-5.1); Sodium 140 mMol/L (136-145); Total Protein 6.1 gm/dL (5.7-8.2); eGFR > 60 See Note
[2024-11-14 02:59] LABS: Partial Thromboplastin Time 51.8 Seconds (22.0-36.0)
[2024-11-14 09:34] LABS: Partial Thromboplastin Time 42.4 Seconds (22.0-36.0)
[2024-11-14] MEDS: PANTOPRAZOLE INJ 40 MG VIAL IVP (10:38)
[2024-11-14] MEDS: ASPIRIN EC 81 MG TABEC PO (10:40)
[2024-11-14] MEDS: METOPROLOL TARTRATE 25 MG TABLET 12.5 MG PO (10:40)
[2024-11-14] MEDS: CLOPIDOGREL BISULFATE 75 MG TABLET PO (10:41)
--- NOTE | 2024-11-14 11:14 | ESDS_ITS ---
<Statement entered by Senia Diaz MD - 11/21/24 13:34> I reviewed above note and agree with findings and plans. I have also personally examined the patient with medicine team and went over assessment and plan with medical team including mechanical intern and resident physician. Planned Discharge Date 11/14/24 DS: Providers Provider Date of admission: 11/12/24 20:53 Primary care physician: Sen Valdez MD Admitting Provider: Jackson Lancaster MD Attending Provider on Admission: Senia Diaz MD Consults: 11/12/24 21:05 Consult to Cardiology Stat Comment: chest pain Consulting Provider: Carlie Sandoval Attending Provider on DC: Armani Wei MD Discharging Provider: Armani Wei MD DS: Diagnosis Problem List Completed Was Problem List Reviewed/Reconciled?: Yes Hospital Course Hospital Course Hospital course: Angi Hernandez is a 74-year-old female with a past medical history of DVT/PE on Xarelto, COPD, history of CVA who presented for chest pain and admitted for further ACS work-up. Presented with 10/10 left-sided chest pain that radiated to her left arm and jaw that is associated with shortness of breath, nausea, and at times syncopal episodes. Pain relieved with nitroglycerin upon arrival to ED. States that she has had these symptoms for years now and has undergone cardiac cath in [place] but no stents were placed per patient. Reports strong family history of CAD. Systolic murmur appreciated on exam. Initial labs showed troponin of 0.07 that downtrended to 0.06, LDL 137, cholesterol 228, TG 191. Carotid ultrasound unremarkable. EKG without any significant ST changes or T wave abnormalities. Echo obtained and showed no regional wall motion abnormalities, normal LV size and function, EF 65%, mild LVH. Normal right heart structures. Moderate AV calcification and mild , consistent with examination. Patient was initially planned for cardiac cath given history and symptoms, but because she had prior cath in [place] without stents placed and self-reported clean coronary arteries, patient was deemed stable for discharge and to follow-up with Dr. Sandoval within 2 weeks with discs of her prior cath. Because symptoms were relieved with nitroglycerin and presented with typical cardiac chest pain, suspect coronary vasospasm or Prinzmetal angina and will start on calcium channel donnie upon discharge. Otherwise, she will continue all other home medications and resume Xarelto. Diagnoses during admission: #NSTEMI type I vs type II #Chest pain #Syncope, likely cardiac #Systolic murmur #History of DVTs and pulmonary embolism #History of vertigo #History of COPD #Type 2 diabetes mellitus Discharge instructions: ? You've been started on diltiazem 120 mg ? Continue taking all other home medications as prescribed ? Follow-up with tie worker, Dr. Sandoval, within two weeks of discharge and bring discs regarding previous cardiac cath ? Follow-up with PCP within 1-2 weeks of discharge ? If you do not have a PCP, you can follow-up at the [facility] (you can call [phone] to make an appointment) ? If you wish to follow-up with Dr. Wei, schedule appointment on Monday afternoons ? Return to ED if symptoms worsen or recur ----- Plan discussed with attending physician Dr. Emily Wei MD PGY-1 Internal Medicine Time Spent with Patient Time attestation: Total time spent providing and/or coordinating discharge services: Time spent: Greater than 30 minutes Exam Vital Signs Temp Pulse Resp BP Pulse Ox O2 Del Method 97.9 F 76 19 146/79 H 96 Room Air 11/14/24 08:00 11/14/24 10:40 11/14/24 08:00 11/14/24 10:40 11/14/24 08:00 11/14/24 08:00 Narrative Exam General: AOx3, no acute distress, able to speak full sentences HEENT: NC/AT, mucous membranes moist, bilateral sclera anicteric Cardiovascular: systolic murmur best heard over left sternal border, regular rate and rhythm, S1/S2 present Pulmonary: clear to auscultation bilaterally, no rales/rhonchi/wheezes Abdominal: soft, non-tender, non-distended, no rebound/guarding, normal bowel sounds present Musculoskeletal: normal ROM, no peripheral edema Skin: warm and dry, intact, no rashes Neuro: CN II-XII intact, no focal deficits Discharge Plan Plan Patient Disposition: HOME (Self Care) Care Plan Goals: ? You've been started on diltiazem 120 mg ? Continue taking all other home medications as prescribed ? Follow-up with tie worker, Dr. Sandoval, within two weeks of discharge and bring discs regarding previous cardiac cath ? Follow-up with PCP within 1-2 weeks of discharge ? If you do not have a PCP, you can follow-up at the [facility] (you can call [phone] to make an appointment) ? If you wish to follow-up with Dr. Wei, schedule appointment on Monday afternoons ? Return to ED if symptoms worsen or recur Prescriptions/Referrals Prescriptions/Med Rec: New diltiazem HCl 120 mg capsule,extended release 24hr 120 mg PO QAM 30 Days Qty: 30 0RF Continued fluticasone propionate 50 mcg/actuation spray,suspension 1 spray Intranasal BID PRN (Reason: Congestion) Patient Comments: 1 SPRAY IN EACH NOSTRIL TWICE A DAY NEEDED FOR CONGESTION NASALLY 07 DAYS omeprazole 20 mg Capsule,Delayed Release(Dr/Ec) 20 mg PO QDAY albuterol sulfate [Ventolin HFA] 90 mcg/actuation Hfa Aerosol Inhaler 2 puff inhalation QDAY PRN (Reason: sob) nitroglycerin 0.4 mg Tablet, Sublingual 0.4 mg BUCCAL [id number] PRN (Reason: Chest Pain) Xarelto 20 mg Tablet 20 mg PO QDAY Rx Instructions: must administer with evening meal ondansetron 4 mg tablet,disintegrating 8 mg PO BID PRN (Reason: Nausea) hydrocodone-acetaminophen 5-325 mg tablet 1 tab PO Q6H MDD 6 PRN (Reason: pain) Qty: 30 0RF atorvastatin 40 mg Tablet 40 mg PO QPM meclizine 25 mg Tablet 25 mg PO BID PRN (Reason: Dizziness) montelukast 10 mg Tablet 10 mg PO QDAY atomoxetine 40 mg Capsule 40 mg PO QAM ondansetron HCl 8 mg tablet 8 mg PO BID PRN (Reason: Nausea And Vomiting) Patient Comments: TAKE 1 TABLET BY MOUTH TWICE A DAY NEEDED Discontinued hydrocodone-acetaminophen 5-325 mg tablet 1 tab PO BID MDD 10mg PRN (Reason: pain) Qty: 6 0RF ibuprofen 800 mg Tablet 800 mg PO Q8H PRN (Reason: Pain) hydrocodone-acetaminophen 5-325 mg tablet 1 tab PO Q8H MDD 3 tabs/day PRN (Reason: pain) Qty: 7 0RF meclizine 50 mg tablet 50 mg PO BID PRN (Reason: dizziness) Qty: 20 0RF Referrals: Sen Valdez MD [Primary Care Provider] - Patient/Caregiver Discharge Instructions Education Materials: Urinary Tract Infections in Women, Discharge Instructions for Angina, Women and Heart Disease ... Print Language: Bulgarian Stand Alone Forms: Rosario Award Info., Patient Portal Info Letter Discharge Order Discharge Orders: Discharge (Routine); Ordered 11/14/24 Ordered By: Armani Wei Quality Discharge Quality Measures VTE prophylaxis
--- NOTE | 2024-11-14 11:36 | PC.SS ---
ASSISTANT CLINICAL NURSE MANAGER conducted bedside contact with the patient conduct initial assessment and to discuss discharge planning.? Patient confirmed demographic information.? Patient resides at home with son, Antoine Stout .? Patient is retired.? Patient utilizes a walker to assist with ambulation.? Patient does not utilize home oxygen.? Patient requires assistance to complete ADL?s.? Patient has applied for [employer].? Patient?s family assist with completion of ADL?s.? Patient identified son, Antoine Stout; as surrogate medical decision maker.? Patient?s PCP is Dr. Valdez [facility].? Patient?s helicopter dispatcher is Dr. Sandoval.? Patient does not participate with dialysis.? Patient utilizes [facility] for medication services.? Plan is for the patient to return home at the time of discharge.? Family will provide transportation on behalf of the patient. ?No further discharge needs identified by the patient.? No further intervention required at this time, social welfare research worker will be available to address any further concerns.? Next of Kin: Antoine Stout D/C Plan: Home
--- NOTE | 2024-11-14 13:03 | PC.SS ---
Update: Patient will not receive cardiac catherization. Plan will be to d/c patient home.
== END 2024-11-14 14:12 | disposition home or self-care (01) | DRG 280 ==
LOC: SERX 19:42 → SERHOLD 21:10 → S2SX 11-13 06:03 → S2NX 11-13 17:37
PROVIDERS: Internal Medicine Cardiovascular Disease; Student in an Organized Health Care Education/Training Program; Admitting Provider Internal Medicine; Emergency Provider Emergency Medicine; PCP Family Medicine; Visit Provider Internal Medicine
DX: I21.4 Non-ST elevation (NSTEMI) myocardial infarction (principal); J18.9 Pneumonia, unspecified organism; N39.0 Urinary tract infection, site not specified; J44.0 Chronic obstructive pulmonary disease with (acute) lower respiratory infection; I11.0 Hypertensive heart disease with heart failure; I50.9 Heart failure, unspecified; E11.9 Type 2 diabetes mellitus without complications; I25.10 Atherosclerotic heart disease of native coronary artery without angina pectoris; E78.5 Hyperlipidemia, unspecified; R01.1 Cardiac murmur, unspecified; I24.9 Acute ischemic heart disease, unspecified; F17.210 Nicotine dependence, cigarettes, uncomplicated; Z86.718 Personal history of other venous thrombosis and embolism; R42 Dizziness and giddiness; Z98.84 Bariatric surgery status; Z86.711 Personal history of pulmonary embolism; Z66 Do not resuscitate; Z86.73 Personal history of transient ischemic attack (TIA), and cerebral infarction without residual deficits; Z79.01 Long term (current) use of anticoagulants; Z90.710 Acquired absence of both cervix and uterus; Z95.5 Presence of coronary angioplasty implant and graft; Z88.5 Allergy status to narcotic agent
CPT/HCPCS: 36415; 71045; 71275; 80053; 80061; 81001; 83036; 83690; 83735; 83880; 84100; 84439; 84443; 84484; 85025; 85610; 85730; 87040; 87811; 93005; 93306; 93880; 96365; 99291; A4649; J0171; J0461; J0696; J1643; J1644; J2250; J2310; J2371; J2470; J3010; J3490; Q9967; A9270; J2305

== ENCOUNTER 2025-06-09 13:16 | Emergency (ER) | payer MEDICARE, MEDICAID, SELFPAY ==
[2025-06-09 13:24] VITALS: PULSE 76; RESP 24; O2SAT 97
[2025-06-09 13:25] VITALS: BP 129/82; PULSE 74; RESP 18; TEMP 36.8; O2SAT 98; BMI 35.5
--- NOTE | 2025-06-09 13:43 | XR_ITS ---
EXAMINATION: Left femur 2 views TECHNIQUE: AP lateral left femur 2 views Date and time: June 09, 2025, 1512 hours, INDICATIONS: Postop reduction internal fixation fractures distal femoral shaft FINDINGS: Severe osteopenia Postop reduction internal fixation comminuted fractures distal femoral shaft Satisfactory alignment Abundant bony callus formation is not identified Orthopedic hardware satisfactory position IMPRESSION: Postop reduction internal fixation comminuted fractures distal femoral shaft with satisfactory alignment
--- NOTE | 2025-06-09 13:44 | EDNOTE_ITS ---
ED General RME/HPI General Chief complaint: Abdominal Pain Stated complaint: ABD PAIN Time Seen by Provider: 06/09/25 13:41 Arrival date/time: 06/09/25 13:16 CC: Low center abdominal pain with frequent urination 7, left femur pain HPI urinary symptoms x 3 days femur pain for the past several days after a near fall and recently that femur was fractured. Patient is awake alert oriented EMS reports stable vital signs. Related Data Home Medications ?Medication ?Instructions ?Recorded ?Confirmed fluticasone propionate 50 1 spray intranasal BID PRN 0 08/18/18 11/13/24 mcg/actuation nasal Congestion spray,suspension albuterol sulfate 90 mcg/actuation 2 puff inhalation Q DAY PRN sob 03/22/19 11/13/24 aerosol inhaler (Ventolin HFA) omeprazole 20 mg capsule,delayed 20 mg PO QDAY 9 11/13/24 release atomoxetine 40 mg capsule 40 mg PO QAM 11/23/23 atorvastatin 40 mg tablet 40 mg PO QPM 11/23/23 meclizine 25 mg tablet 25 mg PO BID PRN Dizziness 0 11/23/23 11/13/24 montelukast 10 mg tablet 10 mg PO QDAY 11/23/2311/13 ondansetron HCl 8 mg tablet 8 mg PO BID PRN Nausea And Vomiting 01/18/24 04/03/24 nitroglycerin 0.4 mg sublingual 0.4 mg buccal [id number] PRN Chest 02/08/24 11/13/24 tablet Pain ondansetron 4 mg disintegrating 8 mg PO BID PRN Nausea 04/03/24 11/13/24 tablet rivaroxaban 20 mg tablet (Xarelto) 20 mg PO QDAY 04/0311/13/24 Previous Rx's ?Medication ?Instructions ?Recorded hydrocodone 5 mg-acetaminophen 325 1 tab PO Q6H PRN pa in #30 tabs 04/05/24 mg tablet cephalexin 500 mg capsule 500 mg PO TID #21 caps 06/09 meloxicam 7.5 mg tablet 7.5 mg PO QDAY #10 tabs 05/13 03/06 Allergies Allergy/AdvReac Type Severity Reaction Status Date / Time morphine Allergy Severe Itching Verified 08/22/24 15:01 codeine AdvReac Severe UPSET Verified 08/22/24 15:01 STOMACH Review of Systems Review of Systems Narrative Review of Systems: GEN: No fever, no chills, no weight loss EYES: No discharge, no visual changes, no pain HEENT: No ear pain, no congestion, no sore throat PULM: No shortness of breath, no cough, no congestion CV: No chest pain, no dyspnea on exertion, no palpitations GI: No nausea, no vomiting, no diarrhea, no pain, no constipation : No frequency, no urgency, no dysuria MUSC/SKEL: No joint pain, no back pain,+ femur pain SKIN: No rash PSYCH: No hallucinations, no depression HEME/LYMPH: No easy bleeding or bruising tendencies NEURO: No weakness, no headache Past Medical History Past Medical History NEUROLOGIC: Positive Neurological Disorders, Cerebrovascular Accident, Seizures and Migraine CARDIAC: Positive Cardiac Disorders, Atrial Fibrillation, Angina, Congestive Heart Failure, Deep Vein Thrombosis, Hypertension and Hypotension RESPIRATORY: Positive Chronic Obstructive Pulmonary Disease (COPD), Bronchitis, Pneumonia, Tuberculosis and Pulmonary Embolism; Negative Asthma or Sleep Apnea GASTROINTESTINAL: Positive Gastrointestinal Disorders, Gastroesophageal Reflux Disease and Obesity; Negative Hepatitis or Gall Bladder Disease GENITOURINARY: Positive Genitourinary Disorders, Renal Disease and Kidney Stones REPRODUCTIVE: Positive Previous Pregnancies MUSCULOSKELETAL: Positive Musculoskeletal Disorders, Arthritis and Rheumatoid Arthritis ENT: Positive Ear Infection ENDOCRINE: Positive Endocrine Disorders, Diabetes Mellitus Type 2 and Hypoglycemia; Negative Diabetes Mellitus Type 1 HEMATOLOGIC: Positive Blood Disorders and Anemia; Negative Sickle Cell Disease PSYCHO/SOCIAL: Positive Depression and Anxiety OTHER HISTORY: Positive Hospitalization, Anesthesia Reactions, Chicken Pox, Measles and Mumps; Negative Autoimmune Disease, Shingles, Blood Transfusions, Blood Transfusion Reaction or Cancer Family History FAMILY HISTORY: Positive Family Cardiac Disorders, Family Cancer and Family Surgery; Negative Family Psychiatric Problems, Family Respiratory Disorders, Family Gastrointestinal Problems or Family Anesthesia Reaction Surgical History SURGICAL: Positive Cardiac Surgery, Angiogram, Tonsillectomy, Gastric Bypass Surgery, Hysterectomy and Tubal Ligation; Negative Ear Surgery Social History SMOKING STATUS: Current some day smoker SUBSTANCE USE: does not use ED Exam Narrative Physical exam: [General: Obese not in any acute distress Head normocephalic HEENT: Eyes pupils are PERRLA EOMs are intact mouth pink moist membranes uvula is midline swallow symmetrical phonation is normal. Within acceptable limits Neck is supple nontender Chest equal chest rise nontender to palpation Respiratory: Clear to auscultation no wheezes crackles or rubs CV: Rate rhythm is regular no murmurs rubs or clicks Abdomen is soft nontender no masses positive bowel sounds all 4 quadrants Back: No CVA tenderness no spinous process tenderness from cervical spine thoracic and lumbar spine Skin: Intact no petechiae rash induration ulceration or crepitus Extremities: Moving all extremities against resistance cap refill less than 2 seconds neurosensory intact, no left femur pain with palpation. Neuro: Awake alert oriented x3 Glascow coma 15 no focal deficits] Course Quality Measures none Orders Category Date Time Status XR femur LT 2V Stat Exams 06/09/25 13:43 Completed XR knee LT 3V Stat Exams 06/09/25 15:01 Completed Urinalysis Stat Lab 06/09/25 16:15 Completed 1000 mg IM Med 06/09/25 17:53 Ordered cefTRIAXone [Rocephin] 1,000 mg Lidocaine 1% Pf Vial 5ml [Xylocaine 1% Pf 5 ml] 2.1 ml IM X1 Vital Signs Vital signs: Vital Signs Temperature 98.3 F 06/09/25 13:25 Pulse Rate 74 06/09/25 13:25 Respiratory Rate 18 06/09/25 13:25 Blood Pressure 129/82 06/09/25 13:25 Pulse Oximetry (%) 98 06/09/25 13:25 Oxygen Delivery Method Room Air 06/09/25 13:25 Discharge Plan Plan Patient Disposition: HOME (Self Care) Patient condition on transfer: Stable Prescriptions/Referrals Prescriptions/Med Rec: New cephalexin 500 mg capsule 500 mg PO TID Qty: 21 0RF meloxicam 7.5 mg tablet 7.5 mg PO QDAY Qty: 10 0RF No Action fluticasone propionate 50 mcg/actuation spray,suspension 1 spray Intranasal BID PRN (Reason: Congestion) Patient Comments: 1 SPRAY IN EACH NOSTRIL TWICE A DAY NEEDED FOR CONGESTION NASALLY 07 DAYS omeprazole 20 mg Capsule,Delayed Release(Dr/Ec) 20 mg PO QDAY albuterol sulfate [Ventolin HFA] 90 mcg/actuation Hfa Aerosol Inhaler 2 puff inhalation QDAY PRN (Reason: sob) nitroglycerin 0.4 mg Tablet, Sublingual 0.4 mg BUCCAL [id number] PRN (Reason: Chest Pain) Xarelto 20 mg Tablet 20 mg PO QDAY Rx Instructions: must administer with evening meal ondansetron 4 mg tablet,disintegrating 8 mg PO BID PRN (Reason: Nausea) hydrocodone-acetaminophen 5-325 mg tablet 1 tab PO Q6H MDD 6 PRN (Reason: pain) Qty: 30 0RF atorvastatin 40 mg Tablet 40 mg PO QPM meclizine 25 mg Tablet 25 mg PO BID PRN (Reason: Dizziness) montelukast 10 mg Tablet 10 mg PO QDAY atomoxetine 40 mg Capsule 40 mg PO QAM ondansetron HCl 8 mg tablet 8 mg PO BID PRN (Reason: Nausea And Vomiting) Patient Comments: TAKE 1 TABLET BY MOUTH TWICE A DAY NEEDED Referrals: Sen Valedz MD [Primary Care Provider, Family Practice] - In 1 week Problem List Clinical Impression: UTI (urinary tract infection), Acute hip pain Patient/Caregiver Discharge Instructions Education Materials: ED CYSTITIS Female Adult Additional Instructions: Take the antibiotics as prescribed until completely gone, take the pain medication as needed for hip pain if there is a worsening of symptoms follow-up with your primary care doctor. Print Language: Latvian Stand Alone Forms: [employer] Award Info., Patient Portal Info Letter, Work/School Release PA/PRODUCT MANAGEMENT SPECIALIST Supervising Physician PA/PRODUCT MANAGEMENT SPECIALIST Supervising Physician: Vick Martinez ENP MDM Clinical Information Provided by: patient and EMS [facility] Meds/Rx considered, not ordered None Labs/Rad/Tests considered, not ordered None Chronic Illness/Social Conditions Explain: Recent femur fracture EKG EKG not done Labs Labs: interpreted by me Lab(s) Interpretation(s): Urine is positive for urinary tract infection Imaging Imaging interpretation: interpreted by me Imaging Interpretation(s): Femur and knee are negative Diagnosis Differential Diagnosis ED Complaint MDM: Hip pain UTI pyelonephritis
--- NOTE | 2025-06-09 15:01 | XR_ITS ---
Examination: Knee, left, 3 views Technique: Knee AP, lateral, oblique 3 views Date and time of exam: June 09, 2025: 1516 hours INDICATIONS: History femur fracture postop reduction internal fixation FINDINGS: Postop reduction internal fixation comminuted fracture distal femoral shaft Satisfactory alignment Orthopedic hardware satisfactory position Advanced narrowing medial joint space left knee Advanced osteoarthritis patellofemoral joint IMPRESSION: Postop reduction internal fixation comminuted fracture distal femoral shaft with satisfactory alignment Advanced osteoarthritis medial patellofemoral joints left knee
[2025-06-09 16:22] LABS: Collection Type, Urine Clean Catch
[2025-06-09 16:39] LABS: Bacteria,Urine 3+; Bilirubin,Urine Negative (Negative); Blood,Urine Trace (Negative); Clarity,Urine Turbid (Clear/Hazy); Color,Urine Yellow (Lt Yel-Yel); Glucose, Urine Negative (Negative); Ketones,Urine Negative (Negative); Leukocyte Esterase,Urine Positive (Negative); Nitrite,Urine Positive (Negative); PH,Urine 7.0 (5.0-7.0); Protein,Urine 1+ (Neg - Trace); RBC,Urine 23 /hpf (0-3); Specific Gravity,Urine 1.030 (1.001-1.035); Squamous Epithelial Cell,Urine < 1 /hpf (0-5); Urobilinogen,Urine 2.0 mg/dL (0.0-1.0); WBC,Urine 120 /hpf (0-5)
[2025-06-09 18:38] VITALS: BP 124/74; PULSE 78; RESP 18; TEMP 36.9; O2SAT 100
== END 2025-06-09 18:42 | disposition home or self-care (01) ==
PROVIDERS: Registered Nurse General Practice; Emergency Provider Family Medicine; PCP Family Medicine
DX: N39.0 Urinary tract infection, site not specified (principal); M25.552 Pain in left hip; M79.652 Pain in left thigh
CPT/HCPCS: 73552; 73562; 81001; 96372; 99283; J0696; J3490